=== PATIENT | male | born 1975 | race Caucasian/White ===

== ENCOUNTER 2023-10-25 19:01 | Outpatient (REF) | payer BC, SELFPAY ==
[2023-10-25 21:45] LABS: Bilirubin Negative (Negative); Blood Trace-lysed (Negative); Clarity Clear (Clear); Glucose Negative (Negative); Ketones Trace mg/dL (Negative); Leukocyte Esterase Negative (Negative); Nitrite Negative (Negative); Urobilinogen 0.2 mg/dL (Up to 0.2); pH 5.5 (5-8)
[2023-10-25 21:54] LABS: Bacteria Rare HPF (Negative); C & S Indicated? No; Casts Negative LPF (Negative); Crystals Negative HPF (Negative); Epithelial Cells Rare HPF (Negative); Mucus Trace (Negative); RBC 0-2 HPF (0-2); WBC 0-2 HPF (0-5)
== END 2023-10-25 19:02 | disposition home or self-care (01) ==
LOC: LBN 19:01
PROVIDERS: PCP Neuromusculoskeletal Medicine & OMM; Visit Provider Physician Assistant
DX: R39.15 Urgency of urination (principal); R39.89 Other symptoms and signs involving the genitourinary system
CPT/HCPCS: 81003; 81015

== ENCOUNTER 2024-09-13 13:27 | Outpatient (REF) | payer BC, SELFPAY ==
--- OUTSIDE RECORDS SUMMARY | 2024-09-13 13:29 | XMS_ITS | Continuity of Care Document ---
Author Organization [facility] Address [address] [place] [address] Care Team Providers Care Supervisor Inspection Room Name Role Phone Alfredo Emanuel Primary Care Physician Encounter [facility] [id number] Date(s): 11/02/22 - 11/02/22 [facility] [address] [place] [address] Encounter Diagnosis Pain of wrist after trauma(Discharge Diagnosis) - 11/02/22 Discharge Disposition: Home or Self Care Attending Physician: Alfredo Emanuel DO Admitting Physician: Alfredo Emanuel DO Referring Physician: Alfredo Emanuel DO Allergies, Adverse Reactions, Alerts No Known Medication Allergies Substance Reaction Severity Status BEE VENOM PROTEIN (HONEY BEE) Anaphylactic reaction Un known Active Assessment and Plan Future Appointments Diagnostic Tests Pending * PSA, Total & Free, S LUCERO 11/02/22 Immunizations Given and Recorded Vaccine Date Status Refusal Reason tetanus-diphth toxoids (Td) adult/adol 08/05/18 Re corded tetanus/diphth/pertuss (Tdap) adult/adol 03/13/08 Recorded Not Given Vaccine Date Status Refusal Reason influenza, unspecified formulation 1 02/14/22 Not Given Patient Refuses 1Result Comment: Patient declined - 06/19/2021 Medications EPINEPHrine 0.3 mg injectable kit See Instructions, PRN other (see comment), Take 1 auto as needed by injection route. Start Date: 02/14/22 Status: Ordered traZODone 50 mg oral tablet 50 mg = 1 tab, Oral, TID, # 90 tab, 0 Refill(s), Pharmacy: [id number] Start Date: 11/02/22 Status: Ordered Problem List Condition Confirmation Course Effective Dates Status Health St atus Informant Blood chemistry abnormal Confirmed Active Elevated liver enzymes level Confirmed 07/14/21 Active Insomnia Confirmed Active Melanocytic nevus Confirmed Active Obstructive sleep apnea syndrome Confirmed Active Pain of left hip joint Confirmed Active Annual physical exam Confirmed Active Periodic leg movements of sleep Confirmed 05/27/18 Active Primary impotence Confirmed Active Rheumatic disease of mitral valve Confirmed Active Shoulder joint pain Confirmed Active Procedures Procedure Date Related Diagnosis Body Site Status Vasectomy 1 07/01/13 Completed Repair of umbilical hernia 2 77 Completed 1in [place] 2double umbilical hernia at Results Laboratory List Name Date Comprehensive Metabolic Panel (CMP) Folate Level 11/02/22 Testosterone, Total and Free [facility] 11/02/22 Vitamin B12 Level (B 12) 11/02/22 Most recent to oldest [Reference Range]: 1 BUN [7-18 mg/dL] 16 mg/dL (11/02/22 8:57 AM) Glucose Level [74-106 mg/dL] 84 mg/dL (11/02/22 8:57 AM) Potassium Level [3.5-5.1 mmol/L] 4.1 mmo l/L (11/02/22 8:57 AM) AST [15-37 unit/L] 25 unit/L (11/02/22 8:57 AM) ALT [16-63 unit/L] 44 unit/L (11/02/22 8:57 AM) Sodium Level [136-145 mmol/L] 140 mmol/L (11/02/22 8:57 AM) Folate Level [8.6-58.9 ng/mL] 16.6 ng/mL (11/02/22 8:57 AM) Calcium Level [8.5-10.1 mg/dL] 8.7 mg/dL (11/02/22 8:57 AM) Albumin Level [3.4-5.0 g/dL] 3.6 g/dL (11/02/22 8:57 AM) Protein Total [6.4-8.2 g/dL] 6.9 g/dL (11/02/22 8:57 AM) Bilirubin Total [0.2-1.0 mg/dL] 0.6 mg/d L (11/02/22 8:57 AM) B12 Level [193-986 pg/mL] 756 pg/mL (11/02/22 8:57 AM) Alk Phos [46-146 unit/L] 97 unit/L (11/02/22 8:57 AM) CO2 [21-32 mmol/L] 28 mmol/L (11/02/22 8:57 AM) eGFR Non-AA [>=60] 95 (11/02/22 8:57 AM) eGFR AA [>=60] 95 (11/02/22 8:57 AM) Chloride Level [98-107 mmol/L] 103 mmol/ L (11/02/22 8:57 AM) Creatinine Level [0.70-1.30 mg/dL] 1.00 mg/dL (11/02/22 8:57 AM) Testosterone [facility] [229-902 ng/dL] 333 ng/ dL 1 *NA* (11/02/22 8:57 AM) Sex Hormone Bnd Glob [facility] [11.5-54.5 nmol /L] 20.8 nmol/L 2 *NA* (11/02/22 8:57 AM) Free Testosterone [facility] [4.1-15.2 ng/dL] 8 .4 ng/dL 3 *NA* (11/02/22 8:57 AM) 1Result Comment: The results of this assay can be falsley elevated due to the consumption of Biotin. 2Result Comment: The results of this assay can be falsely lowered due to the consumption of Biotin. 3Result Comment: This test is not recommended in patients with plasma protein abnormalities. Test performed [place] [address] Social History Social History Type Response Tobacco Never tobacco user T obacco Use:. Sex Male Patient Care team information Care Team Personnel Name: Alfredo Emanuel DO Position: Physician Member Role: Primary Care Physician Address: Address: [place] [address]- Care Team Related Persons Name: MAT MESSINA
--- OUTSIDE RECORDS SUMMARY | 2024-09-13 13:29 | XMS_ITS | Continuity of Care Document ---
Author Organization [facility] Address [address] [place] [address] Care Team Providers Care Program Writer Name Role Phone Alfredo Emanuel Primary Care Physician [phone] Encounter COUNTS INCLUDE 234 BEDS AT [facility] [id number] Date(s): 12/01/22 - 01/20/23 [facility] [address] [place] [address] Discharge Disposition: Home or Self Care Attending Physician: Eduar Landry PA-C Admitting Physician: Eduar Landry PA-C Allergies, Adverse Reactions, Alerts No Known Medication Allergies Substance Reaction Severity Status BEE VENOM PROTEIN (HONEY BEE) Anaphylactic reaction Un known Active Assessment and Plan Future Appointments Future Scheduled Tests Radiology* MRI Wrist w/ Contrast Left 11/27/22 * XR Arthrogram Wrist SI Left 11/27/22 Immunizations Given and Recorded Vaccine Date Status Refusal Reason tetanus-diphth toxoids (Td) adult/adol 08/05/18 Re corded tetanus/diphth/pertuss (Tdap) adult/adol 03/13/08 Recorded Not Given Vaccine Date Status Refusal Reason influenza, unspecified formulation 1 02/14/22 Not Given Patient Refuses 1Result Comment: Patient declined - 06/19/2021 Medications EPINEPHrine 0.3 mg injectable kit 0.3 mg =, IM, Once, PRN other (see comment), # 1 kits, 0 Refill(s), Pharmacy: [facility] #[id number] Start Date: 11/16/22 Status: Ordered traZODone 50 mg oral tablet 50 mg = 1 tab, Oral, TID, # 90 tab, 0 Refill(s), Pharmacy: [id number] Start Date: 11/02/22 Status: Ordered Problem List Condition Confirmation Course Effective Dates Status H ealth Status Informant Blood chemistry abnormal Confirmed Active Elevated liver enzymes level Confirmed 07/14/21 Active Insomnia Confirmed Active Melanocytic nevus Confirmed Active Obstructive sleep apnea syndrome 1 Confirmed Active Pain of left hip joint Confirmed Active Annual physical exam Confirmed Active Periodic leg movements of sleep Confirmed 05/27/18 Active Primary impotence Confirmed Active Rheumatic disease of mitral valve Confirmed Active Shoulder joint pain Confirmed Active 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 Sex Male Patient Care team information Care Team Personnel Name: Alfredo Emanuel DO Position: Physician Member Role: Primary Care Physician Address: Address: [place] [address]- Care Team Related Persons Name: MAT MESSINA Address: [facility]
--- OUTSIDE RECORDS SUMMARY | 2024-09-13 13:29 | XMS_ITS | Continuity of Care Document ---
Author Organization [facility] Address [address] [place] [address] Care Team Providers Care Punchboard Inserter Name Role Phone Jenae [facility] Primary [facility] Date[facility]/23 - 10/19/23 [facility] [address] [place] [address] Discharge Disposition: Home or Self Care Attending Physician: Hernando Bertrand MD Admitting Physician: Hernando Bertrand MD Referring Physician: Hernando Bertrand MD Allergies, Adverse Reactions, Alerts No Known Medication [...] comment), # 1 kits, 0 Refill(s), Pharmacy: [id number] Start Date: 05/10/23 Status: Ordered sertraline 25 mg oral tablet 12.5 mg = 0.5 tab, Oral, Daily, # 45 tab, 0 Refill(s), Pharmacy: [facility] Start Date: 05/13/23 Status: Ordered traZODone 50 mg oral tablet 50 mg = 1 tab, Oral, TID, # 90 tab, 0 Refill(s), Pharmacy: [id number], 173, cm, 11/23/22 9:18:00 EDT, Height Start Date: 10/14/23 Status: Ordered Problem List Condition Confirmation Course Effective Dates Status H ealth Status Informant Erectile dysfunction Confirmed Active Insomnia Confirmed Active Melanocytic nevus Confirmed Active Obstructive sleep apnea syndrome 1 Confirmed Active Pain of left hip joint Confirmed Active Annual physical exam Confirmed Active Periodic leg movements of sleep Confirmed 05/27/18 Active Premature ejaculation Confirmed Active Low libido Confirmed Active Rheumatic disease of mitral valve Confirmed Active Shoulder joint pain Confirmed Active 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 Confirmed Active 1CPAP 6-16 cm TMS Procedures Procedure Date Related Diagnosis Body Site Status Vasectomy 1 07/01/13 Completed Repair of umbilical hernia 2 77 Completed 1in [place] 2double umbilical hernia at Results Laboratory List Name Date FSH [facility] 10/19/23 Hematocrit 10/19/23 Hemoglobin 10/19/23 LH [facility] 10/19/23 Prolactin [facility] 10/19/23 Testosterone, Total and Free [facility] 10/19/23 Thyroid Stimulating Hormone 10/19/23 Most recent to oldest [Reference Range]: 1 Hct [41.0-51.0 %] 46.2 % (10/19/23 7:27 AM) Hgb [14.0-18.0 g/dL] 15.6 g/dL (10/19/23 7:27 AM) TSH [0.358-3.740 mcIntlUnit/mL] 1.396 mc IntlUnit/mL (10/19/23 7:27 AM) FSH [facility] [1.4-18.1 mIntlUnit/mL] 5.5 mInt lUnit/mL 1 *NA* (10/19/23 7:27 AM) Luteinizing Hormone [facility] [1.5-9.3 mIntlUn it/mL] 2.6 mIntlUnit/mL 2 *NA* (10/19/23 7:27 AM) Prolactin [facility] [2.1-17.7 ng/mL] 5.0 ng/mL 3 *NA* (10/19/23 7:27 AM) Testosterone [facility] [229-902 ng/dL] 416 ng/ dL 4 *NA* (10/19/23 7:27 AM) Sex Hormone Bnd Glob [facility] [11.5-54.5 nmol /L] 18.6 nmol/L 5 *NA* (10/19/23 7:27 AM) Free Testosterone [facility] [4.0-14.5 ng/dL] 1 1.3 ng/dL 6 *NA* (10/19/23 7:27 AM) 1Result Comment: Test [place] [address] 2Result Comment: Test [place] [address] 3Result Comment: Test [place] [address] 4Result Comment: The results of this assay can be falsley elevated due to the consumption of Biotin. 5Result Comment: The results of this assay can be falsely lowered due to the consumption of Biotin. 6Result Comment: This test is not recommended in patients with plasma protein abnormalities. Test [place] [address] Social History Social History Type Response Tobacco Never tobacco user T obacco Use:. Sex Male Patient Care team information Care Team Personnel Name: Jenae [facility]ALTH[facility] DO Position: PowerChart View Only Member Role: Informed Provider Address: Address: [place] [address]- Care Team Related Persons Name: MAT MESSINA
--- OUTSIDE RECORDS SUMMARY | 2024-09-13 13:29 | XMS_ITS | Continuity of Care Document ---
Author Organization [facility] Address [address] [place] [address] Care Team Providers Care Inside Sales Director Name Role Phone Alfredo Emanuel Primary Care Physician [facility] [id number] Date(s): 11/16/22 - 11/16/22 [facility] [address] [place] [address] Encounter Diagnosis Fatigue(Discharge Diagnosis) - 11/16/22 Obstructive sleep apnea syndrome(Discharge Diagnosis) - 11/16/22 Discharge Disposition: Home or Self Care Attending Physician: Eduar Landry PA-C Admitting Physician: Eduar Landry PA-C Allergies, Adverse Reactions, Alerts No Known Medication Allergies Substance Reaction Severity Status BEE VENOM PROTEIN (HONEY BEE) Anaphylactic reaction Un known Active Assessment and Plan Future Appointments Future Scheduled Tests Radiology* MRA Upper Extremity w/ + w/o Cnt Left 11/16/22 Immunizations Given and Recorded Vaccine Date Status [...] comment), # 1 kits, 0 Refill(s), Pharmacy: [facility] #[id number] Start Date: 11/16/22 Status: Ordered traZODone 50 mg oral tablet 50 mg = 1 tab, Oral, TID, # 90 tab, 0 Refill(s), Pharmacy: [facility] Start Date: 11/02/22 Status: Ordered [...] complex (TFCC) of left wrist Confirmed Active Procedures Procedure Date Related Diagnosis Body Site Status Vasectomy 1 07/01/13 Completed Repair of umbilical hernia 2 77 Completed 1in [place] 2double umbilical hernia at Results Laboratory List Name Date Automated Diff 11/16/22 CBC w/ Diff 11/16/22 TSH w/ Rflx to Free T4 11/16/22 Most recent to oldest [Reference Range]: 1 WBC [5.0-10.0 x10^3/mcL] 5.4 x10^3/mcL (11/16/22 10:32 AM) RBC [4.6-6.0 x10^6/mcL] 5.1 x10^6/mcL (11/16/22 10:32 AM) Neutro Auto [40.0-75.0 %] 74.0 % (11/16/22 10:32 AM) Lymph Auto [20.0-50.0 %] 18.0 % *LOW* (11/16/22 10:32 AM) Carbon Auto [2.0-15.0 %] 5.7 % (11/16/22 10:32 AM) Basophil Auto [0.0-1.0 %] 0.4 % (11/16/22 10:32 AM) MCV [80.0-96.0] 86.7 (11/16/22 10:32 AM) MCHC [31.0-35.0 g/dL] 34.2 g/dL (11/16/22 10:32 AM) Hct [41.0-51.0 %] 44.5 % (11/16/22 10:32 AM) MCH [26.0-32.0 pg] 29.6 pg (11/16/22 10:32 AM) Neutro Absolute 4.0 x10^3/mcL *NA* (11/16/22 10:32 AM) Hgb [14.0-18.0 g/dL] 15.2 g/dL (11/16/22 10:32 AM) Platelets [130-450 x10^3/mcL] 207 x10^3/ mcL (11/16/22 10:32 AM) TSH [0.358-3.740 mcIntlUnit/mL] 0.854 mc IntlUnit/mL (11/16/22 10:32 AM) RDW-CV [11.5-17.0 %] 12.1 % (11/16/22 10:32 AM) Imm Gran Auto [0.0-0.9 %] 0.6 % (11/16/22 10:32 AM) Eos, Auto [1.0-6.0 %] 1.3 % (11/16/22 10:32 AM) Social History Social History Type Response Tobacco Never tobacco user T obacco Use:. Sex Male Patient Care team information Care Team Personnel Name: Alfredo Emanuel DO Position: Physician Member Role: Primary Care Physician Address: Address: [place] [facility] [address] [address]- Care Team Related Persons Name: MAT MESSINA
--- OUTSIDE RECORDS SUMMARY | 2024-09-13 13:30 | XMS_ITS | Continuity of Care Document ---
Author Organization [facility] Address [address] [place] [address] Care Team Providers Care Community Services Coordinator Name Role Phone Alfredo Torres Primary Care Physician Encounter [facility] [id number] Date(s): 01/17/24 - 01/17/24 [facility] [address] [place] [address] Encounter Diagnosis Obstructive sleep apnea syndrome(Discharge Diagnosis) - 01/12/24 Obstructive sleep apnea (adult) (pediatric)(Final) - Discharge Disposition: Home or Self Care Attending Physician: Lesly Carbajal NP Referring Physician: Alfredo Torres DO Allergies, Adverse Reactions, Alerts No Known Medication Allergies Substance Reaction Severity Status BEE VENOM PROTEIN (HONEY BEE) Anaphylactic reaction Un known Active Assessment and Plan Extracted from: Title:Clinic - Office Visit Note Author:Low Carbajal NP Date:01/17/24 1.??Obstructive sleep apnea syndrome??G47.33 ??ZELALEM with an AHI of 6.2/hr diagnosed in 2012. He never started treatment??initially. I ordered CPAP 6-16 cm when I last saw him in 2018. He tried??it for a very brief period of time (a few days) and returned it. Then he tried CPAP again about a year ago and again only tried it a few times and could not stand having anything on his face. He continues to have snoring, fatigue and nocturia.?? At this time he is interested in trying an oral appliance. I discussed this treatment with him to??include potential for tooth pain/sensitivity,??jaw pain/stiffness and bite change. He has all his teeth and they are in good condition. He does not have any locking or popping of jaw. I will see him back in six months. I??did let??him know??that??since??his PSG is so??old??it is possible??his??insurance??will require an??updated??PSG.??He is asked to call our office for any sleep related questions or concerns. He does still have his CPAP so if the appliance does not work out he could always try that again. I provided greater than 30 minutes in the care of this patient, more than half the time was spent in [id number] counseling. ? Actions: COMPLETED - [id number] Office/Outpatient Visit - Established Patient, Level 4 (30-39 min)., 01/17/24 12:40:00 EDT, Obstructive sleep apnea syndrome FUTURE - Follow-Up Appointment Request SHABANAY, *Est. 07/18/24 +/- 28 days, Future Order, In [facility] COMPLETED - Referral Management, Medical Service: Other, Reason: Please evlauate and fit for an oral appliance. He failed CPAP Dr Shay, Start: 01/17/24 ?? Future Appointments Immunizations Given and Recorded Vaccine Date Status [...] comment), # 1 kits, 0 Refill(s), Pharmacy: [id number], 173, cm, 11/23/22 9:18:00 EDT, Height, 75.8, kg, 12/20/23 14:26:00 EDT, Weight Dosing Start Date: 12/20/23 Status: Ordered Medrol Dosepak 4 mg oral tablet 1 packets, Oral, Daily, as directed on package labeling, # 21 tab, 0 Refill(s), Pharmacy: [facility], 173, cm, 11/23/22 9:18:00 EDT, Height, 75.8, kg, 12/20/23 14:26:00 EDT, Weight Dosing Start Date: 12/20/23 Stop Date: 12/26/23 Status: Ordered sertraline 25 mg oral tablet 12.5 mg = 0.5 tab, Oral, Daily, # 45 tab, 0 Refill(s), Pharmacy: [facility] Start Date: 05/13/23 Status: Ordered traZODone 50 mg oral tablet 75 mg = 1.5 tab, Oral, every night at bedtime, # 45 tab, 11 Refill(s), other reason (Rx) Start Date: 10/21/23 Stop Date: 10/15/24 Status: Ordered Problem List Condition Confirmation Course Effective Dates Status H ealth Status Informant Erectile dysfunction Confirmed Active Pain of right heel Confirmed Active Insomnia Confirmed Active Melanocytic nevus [...] Completed 1in Aleyda 2double umbilical hernia at Vital Signs Most recent to oldest [Reference Range]: 1 Peripheral Pulse Rate [60-100 bpm] 70 bp m (01/17/24 12:47 PM) Blood Pressure [90-140/60-90 mmHg] 126/7 8mmHg (01/17/24 12:47 PM) Mean Arterial Pressure, Cuff [65-140 mmH g] 94 mmHg (01/17/24 12:47 PM) Weight 72.57 kg (01/17/24 12:47 PM) Weight Measured (lbs) 159.989 lb (01/17/24 12:47 PM) Weight Dosing 72.570 kg (01/17/24 12:47 PM) Height 173 cm (01/17/24 12:47 PM) Height/Length Measured (inches) 68.11 in ch (01/17/24 12:47 PM) BSA Measured 1.87 m2 (01/17/24 12:47 PM) Body Mass Index 24.25 kg/m2 (01/17/24 12:47 PM) Social History Social History Type Response Tobacco Never tobacco user T obacco Use:. Sex Male Physician Outpatient Note * Lesly Carbajal DRY CLEANING MACHINE OPERATOR HELPER: PERFORM Event Display: Office Clinic Note Physician Authored Date: [id number] JAIRO DAVENPORT :1975 Age:48 years Sex:Male Visit Date:01/17/2024 Primary Care Physician: [facility] History of Present Illness Jairo Davenport has a visit for ZELALEM follow-up.? Jairo was last seen by me on 11/03/2022??He has a history of insomnia, impotence, rheumatic dz of mitral valve and ZELALEM. ?? PSG 11/19/12 (BMI 25.1), AHI 6.2/hr, 02 siva 92%, PLMi 23.6/hr, PLMai 3.1/hr. ?? He attempted??CPAP 6-16 cm very briefly in 2018 and had poor tolerance. ?? Last visit he noted symptoms of??snoring, sleep fragmentation, daytime sleepiness (ESS 9), low libido, ED, and neurocognitive decline. We discussed treatment options and he elected??to try CPAP again??so I ordered this and he was lost to follow-up. ?? Jairo says that he did try CPAP again very briefly and he had very poor tolerance to it and just could not stand anything on his face or being attached to something. He returns today because he continues to have symptoms and he wants to try a different treatment.?? He gets to bed around 9 pm, he tends to sleep on the couch for about 30-60 minutes before getting to bed, he tends to get to sleep easily most nights. He wakes up 2/night to urinate and generally gets back to sleep ok but??at times it takes a long time if he has something on his mind. He gets up at4 am to start his day. He is not napping. He is snoring, he has rare gasping, he is not having night sweats, morning headaches or nocturnal reflux.? ESS today 04/25 Physical Exam Vitals & Measurements HR:??70??(Peripheral)?? BP:??126/78?? SpO2:??99%?? HT:??173??cm?? WT:??72.57??kg?? BMI:??24.25?? BSA:??1.87?? GENERAL: answers questions appropriately, well groomed, normal weight HEAD: normocephalic and atraumatic. EYES: non icteric LUNGS: CTA all manriquez. Good air movement throughout. CARDIO: RRR without murmur, gallop or thrill. NEURO: alert and oriented, normal gait. PYSCH: normal mood and affect. CUTANEOUS: no overt lesions or rashes.?? Clinic Assessment/Plan 1.??Obstructive sleep apnea syndrome??G47.33 ??ZELALEM with an AHI of 6.2/hr diagnosed in 2012. He never started treatment??initially. I ordered CPAP 6-16 cm when I last saw him in 2018. He tried??it for a very brief period of time (a few days) andreturned it. Then he tried CPAP again about a year ago and again only tried it a few times and could not stand having anything on his face. He continues to have snoring, fatigue and nocturia.?? At this time he is interested in trying an oral appliance. I discussed this treatment with him to??include potential for tooth pain/sensitivity,??jaw pain/stiffness and bite change. He has all his teeth and they are in good condition. He does not have any locking or popping of jaw. I will see him back in six months. I??did let??him know??that??since??his PSG is so??old??it is possible??his??insurance??will require an??updated??PSG.??He is asked to call our office for any sleep related questionsor concerns. He does still have his CPAP so if the appliance does not work out he could always try that again. I provided greater than 30 minutes in the care of this patient, more than half the time was spent in [id number] counseling. Actions: COMPLETED - [id number] Office/Outpatient Visit - Established Patient, Level 4 (30-39 min)., 01/17/24 12:40:00 EDT, Obstructive sleep apnea syndrome FUTURE - Follow-Up Appointment Request TATA, *Est. 07/18/24 +/- 28 days, Future Order, In [facility] COMPLETED - Referral Management, Medical Service: Other, Reason: Please evlauate and fit for an oral appliance. He failed CPAP Dr Shay, Start: 01/17/24 ?? 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 Unchanged methylPREDNISolone (Medrol Dosepak 4 mg oral tablet) 1 packets Oral (given by mouth) Every day Pain of right heel Duration: 6 Days as directed on package labeling Contact prescribing physician if questions or concerns ?? Unchanged sertraline (sertraline 25 mg oral tablet) 0.5 tab Oral (given by mouth) Every day Anxiety Contact prescribing physician if questions or concerns ?? Unchanged traZODone (traZODone 50 mg oral tablet) 1.5 tab Oral (given by mouth) Every night at bedtime Insomnia Duration: 30 Days Contact prescribing physician if questions or concerns ?? Allergies BEE VENOM PROTEIN (HONEY BEE)??(Anaphylactic reaction) No Known Medication Allergies Social History Alcohol Never Electronic Cigarette/Vaping Electronic Cigarette Use: Never. Tobacco Never tobacco user Tobacco Use:. Family History COPD - Chronic obstructive pulmonary disease: Mother. Melanoma in situ: Father. Obstructive sleep apnea: Father. Immunizations Vaccine Date Status influenza, unspecified formulation - Not Given Comments : Patient Refuses Patient declined - 06/19/2021 tetanus-diphth toxoids (Td) adult/adol 08/05/2018 Recorded tetanus/diphth/pertuss (Tdap) adult/adol 03/13/2008 Recorded Electronically Signed on 01/17/2024 13:12 EDT Lesly Carbajal NP Patient Care team information Care Team Personnel Name: Alfredo Torres DO Position: PowerChart View Only Member Role: Informed Provider Address: Address: [place] [facility] [place] [address]- Care Team Related Persons Name: MAT DAVENPORT
--- OUTSIDE RECORDS SUMMARY | 2024-09-13 13:30 | XMS_ITS | Encounter Summary ---
Author Organization [facility] [place] [address] Care Team Providers Care Temperature Logging Operator Name Role Phone Eduar Landry Primary Care Provider Encounter Details Date Type Department Care Team (Latest Contact Info) Description 10/18/2023 Travel Social History Tobacco Use Types Packs/Day Years Used Date Smoking Tobacco: Former Cigarettes 0.5 3 018 2020 Smokeless Tobacco: Never Sex and Gender Information Value Date Recorded Sex Assigned at Not on file Gender Identity Not on file Sexual Orientation Not on file documented as of this encounter Plan of Treatment Not on file documented as of this encounter Visit Diagnoses Not on filedocumented in this encounter Care Teams Temperature Logging Operator Relationship Specialty Start Date End Date Eduar Landry PA [address] [facility] [address] PCP - General Family Medicine 05/19/23 documented as of this encounter
--- OUTSIDE RECORDS SUMMARY | 2024-09-13 13:30 | XMS_ITS | Continuity of Care Document ---
Author Organization [facility] Address [address] [place] [address] Care Team Providers Care Devulcanizer Operator Name Role Phone Jenae [facility] Primary Care Physician En[facility] Date(s): 10/27/23 - 10/27/23 [facility] [address] [place] [address] Discharge Disposition: Home or Self Care Attending Physician: Pamela Mensah PA-C Admitting Physician: Pamela Mensah PA-C Referring Physician: Pamela Mensah PA-C Allergies, Adverse Reactions, Alerts No Known [...] comment), # 1 kits, 0 Refill(s), Pharmacy: [facility] Start Date: 05/10/23 Status: Ordered sertraline 25 mg oral tablet 12.5 mg = 0.5 tab, Oral, Daily, # 45 tab, 0 Refill(s), Pharmacy: [facility] Start Date: 05/13/23 Status: Ordered traZODone [...] Laboratory List Name Date Comprehensive Metabolic Panel 10/27/23 PSA Screen 10/27/23 Most recent to oldest [Reference Range]: 1 BUN [7-18 mg/dL] 21 mg/dL *HI* (10/27/23 4:33 PM) Glucose Level [74-106 mg/dL] 90 mg/dL (10/27/23 4:33 PM) Potassium Level [3.5-5.1 mmol/L] 3.7 mmo l/L (10/27/23 4:33 PM) AST [15-37 unit/L] 23 unit/L (10/27/23 4:33 PM) ALT [16-63 unit/L] 40 unit/L (10/27/23 4:33 PM) Sodium Level [136-145 mmol/L] 138 mmol/L (10/27/23 4:33 PM) Calcium Level [8.5-10.1 mg/dL] 8.9 mg/dL (10/27/23 4:33 PM) Albumin Level [3.4-5.0 g/dL] 3.6 g/dL (10/27/23 4:33 PM) Protein Total [6.4-8.2 g/dL] 6.7 g/dL (10/27/23 4:33 PM) Bilirubin Total [0.2-1.0 mg/dL] 0.4 mg/d L (10/27/23 4:33 PM) Alk Phos [46-146 unit/L] 81 unit/L (10/27/23 4:33 PM) CO2 [21-32 mmol/L] 27 mmol/L (10/27/23 4:33 PM) eGFR Non-AA [>=60] 88 (10/27/23 4:33 PM) eGFR AA [>=60] 88 (10/27/23 4:33 PM) Chloride Level [98-107 mmol/L] 103 mmol/ L (10/27/23 4:33 PM) Creatinine Level [0.70-1.30 mg/dL] 1.06 mg/dL (10/27/23 4:33 PM) PSA Total Screening [0.00-4.00 ng/mL] 0. 46 ng/mL 1 (10/27/23 4:33 PM) 1Interpretive Data: The testing method is an heterogeneous enzyme Immunoassay manufactured by [employer] and performed on the MiniMonos system. Values obtained with different assay methods or kits may be different and cannot be used interchangeably. Test results cannot be interpreted as absolute evidence for the presence or absence of malignant disease. Social History Social History Type Response Tobacco Never tobacco user T obacco Use:. Sex Male Patient Care team information Care Team Personnel Name: Alfredo Torres DO Position: PowerChart View Only Member Role: Informed Provider Address: Address: [place] [address]- Care Team Related Persons Name: MAT MESSINA
--- OUTSIDE RECORDS SUMMARY | 2024-09-13 13:30 | XMS_ITS | Continuity of Care Document ---
Author Organization [facility] Address [address] [place] [address] Care Team Providers Care Industrial Automation Specialist Name Role Phone Alfredo Emanuel Primary Care Physician Encounter [facility] Date(s): 01/28/23 - 03/24/23 [facility] [address] [place] [address] Discharge Disposition: Home or Self Care Attending Physician: Eduar Landry PA-C Admitting Physician: Eduar Landry PA-C Referring Physician: Eduar Landry PA-C Allergies, Adverse Reactions, Alerts No Known Medication Allergies Substance Reaction Severity Status BEE VENOM PROTEIN (HONEY BEE) Anaphylactic reaction Un known Active Assessment and Plan Future Appointments Future Scheduled Tests Laboratory* Ferritin 03/24/23 * Iron Level and TIBC 03/24/23 Radiology* MRI Wrist w/ Contrast Left 11/27/22 [...] comment), # 1 kits, 0 Refill(s), Pharmacy: [facility] Start Date: 11/16/22 Status: Ordered traZODone 50 mg oral tablet 50 mg = 1 tab, Oral, TID, # 90 tab, 0 Refill(s), Pharmacy: [facility] Start Date: 11/02/22 Status: Ordered Problem [...] Member Role: Primary Care Physician Address: Address: [place] [facility] [id number] [place] [address] Care Team Related Persons Name: MAT MESSINA Address: Home
--- OUTSIDE RECORDS SUMMARY | 2024-09-13 13:30 | XMS_ITS | Continuity of Care Document ---
Author Organization [facility] Address [address] [place] [address] Care Team Providers Care Security Door Installer Name Role Phone Jenae [facility] Date[facility] 12/20/23 - 12/20/23 [facility] [address] [place] [address] Encounter Diagnosis Pain of right heel(Discharge Diagnosis) - 12/20/23 Discharge Disposition: Home or Self Care Attending Physician: Qamar Elizabeth MD Admitting Physician: Qamar Elizabeth MD Referring Physician: Qamar Elizabeth MD Allergies, Adverse Reactions, Alerts No Known Medication Allergies Substance Reaction Severity Status BEE VENOM PROTEIN (HONEY BEE) Anaphylactic reaction Un known Active Assessment and Plan Future Appointments Immunizations Given and Recorded Vaccine [...] comment), # 1 kits, 0 Refill(s), Pharmacy: [facility], 173, cm, 11/23/22 9:18:00 EDT, Height, 75.8, kg, 12/20/23 14:26:00 EDT, Weight Dosing Start Date: 12/20/23 Status: Ordered Medrol Dosepak 4 mg oral tablet 1 packets, Oral, Daily, as directed on package labeling, # 21 tab, 0 Refill(s), Pharmacy: [facility], 173, cm, 11/23/22 9:18:00 EDT, Height, 75.8, kg, 12/20/23 14:26:00 EDT, Weight Dosing Start Date: 12/20/23 Stop Date: 12/26/23 Status: Ordered sertraline 25 mg oral tablet 12.5 mg = 0.5 tab, Oral, Daily, # 45 tab, 0 Refill(s), Pharmacy: [facility] Start Date: 05/13/23 Status: Ordered traZODone [...] team information Care Team Personnel Name: Jenae [facility] DO Position: PowerChart View Only Member Role: Informed Provider Address: Address: [place] [facility] [address] Care Team Related Persons Name: MAT MESSINA
--- OUTSIDE RECORDS SUMMARY | 2024-09-13 13:30 | XMS_ITS | Clinical Summary ---
Author Organization [facility] Address [facility] [place] [address] Care Team Providers Care Building Surveyor Name Role Phone Eduar Landry Primary Care Provider [phone] Allergies Active Allergy Reactions Criticality Noted Date Comments Bee Venom Protein (Honey Bee) Anaphylaxis High 10/18/2023 White faced hornets Medications Medication Sig Dispensed Refills Start Date End Date Status traZODone (Desyrel) 50 mg tablet Take 50 mg by mouth 3 times daily. 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 10/18/2023 Social History Tobacco Use Types Packs/Day Years Used Date Smoking Tobacco: Former Cigarettes 0.5 3 2 018 - 2020 Smokeless Tobacco: Never Tobacco Cessation:Counseling Given: Not Answered Sex and Gender Information Value Date Recorded Sex Assigned at Not on file Gender Identity Not on file Sexual Orientation Not on file Last Filed Vital Signs Vital Sign Reading Time Taken Comments Blood Pressure 138/89 10/18/2023 9:51 AM EDT Pulse 65 10/18/2023 9:51 AM EDT Temperature 36.6 ??C (97.9 ??F) 10/18/2023 9:51 AM ED T Respiratory Rate - - Oxygen Saturation 98% 10/18/2023 9:51 AM EDT Inhaled Oxygen Concentration - - Weight 76.3 kg (168 lb 3.2 oz) 10/18/2023 9:51 A M EDT Height 170.6 cm (5' 7.15) 10/18/2023 9:51 AM ED T Body Mass Index 26.23 10/18/2023 9:51 AM EDT Plan of Treatment Health Maintenance Due Date Last Done Comments CT Colonography 1977 Colonoscopy 1975 Colorectal Cancer Screening 1975 FIT DNA 1977 FIT 1975 Sigmoidoscopy (10 year) with FIT yearly 1977 Sigmoidoscopy 1977 HIV screen 11/24/1995 Hepatitis C Screening 11/24/1995 Lipid Screening 11/24/1995 Hepatitis B vaccine (0-59 yrs) (1) 1996 Pneumococcal Vaccine: At-Risk 5-49yrs (1 of 2 - PCV) 0 1996 Tetanus/Diphtheria/Pertussis Vaccines (1 - Tdap) 11/23 Diabetes Screening (HgbA1C or Glucose) 2017 Covid-19 Vaccine (1 - 2023- season) 2024 Influenza (Flu) vaccine (1 o f 1 - Influenza standard series) 04/02/2024 Care Teams Building Surveyor Relationship Specialty Start Date End Date Eduar Landry PA [address] [place] [address] PCP - General Family Medicine 05/19/23
--- OUTSIDE RECORDS SUMMARY | 2024-09-13 13:30 | XMS_ITS | Continuity of Care Document ---
Author Organization [facility] Address [address] [place] [address] Care Team Providers Care Health/Safety Job Titles Name Role Phone Binu Morse Primary Care Physician Encounter [facility] [id number] Date(s): 06/26/24 - 07/26/24 [facility] [address] [place] [address] Encounter Diagnosis Obstructive sleep apnea syndrome(Discharge Diagnosis) - 06/16/24 Discharge Disposition: Home or Self Care Attending Physician: Lesly Carbajal HOOK AND EYE SEWING MACHINE OPERATOR Encounter Type: Preadmit Allergies, Adverse Reactions, Alerts No Known Medication Allergies Substance Criticality Severity Reaction Reaction Severity Status BEE VENOM PROTEIN (HONEY BEE) Unable to assess criticality Unknown Anaphylactic reaction Active Immunizations Given and Recorded Vaccine Date Status [...] comment), # 1 kits, 0 Refill(s), Pharmacy: [facility], 173, cm, 11/23/22 9:18:00 EDT, Height, 75.8, kg, 12/20/23 14:26:00 EDT, Weight Dosing Start Date: 12/20/23 Status: Ordered Quantity: 1.0 Unit: kits Repeat number: 1 Medrol Dosepak 4 mg oral tablet 1 packets, Oral, Daily, as directed on package labeling, # 21 tab, 0 Refill(s), Pharmacy: [facility], 173, cm, 11/23/22 9:18:00 EDT, Height, 75.8, kg, 12/20/23 14:26:00 EDT, Weight Dosing Start Date: 12/20/23 Stop Date: 12/26/23 Status: Ordered Quantity: 21.0 Unit: tab Repeat number: 1 Indication: Pain in right foot sertraline 25 mg oral tablet 12.5 mg = 0.5 tab, Oral, Daily, # 45 tab, 0 Refill(s), Pharmacy: [facility] Start Date: 05/13/23 Status: Ordered Quantity: 45.0 Unit: tab Repeat number: 1 Indication: Anxiety disorder, unspecified traZODone 50 mg oral tablet 75 mg = 1.5 tab, Oral, every night at bedtime, # 45 tab, 11 Refill(s), other reason (Rx) Start Date: 10/21/23 Stop Date: 10/15/24 Status: Ordered Quantity: 45.0 Unit: tab Repeat number: 12 Indication: Insomnia, unspecified Problem List Condition Confirmation Course Effective Dates [...] tobacco user T obacco Use:. Sex Male Sex Representation Male (finding) Patient Care team information Care Team Personnel Name: Jenae [facility] Position: PowerChart View Only Member Role: Informed Provider Address: [address] Telecom: Name: Binu Morse MD Position: Physician Member Role: Primary Care Physician Address: [address] Telecom: Care Team Related Persons Name: MAT MESSINA Insurance Providers Guarantor name: JAIRO MESSINA Health Plan Information #: 3 Payer: [employer] Member Number: [id number] Policy Number: NA Group Number: NA Health Plan Information #: 1 Payer: [facility] Member Number: [id number] Policy Number: NA Group Number: NA Health Plan Information #: 2 Payer: [employer] Member Number: [id number] Policy Number: NA Group Number: [id number]
--- OUTSIDE RECORDS SUMMARY | 2024-09-13 13:30 | XMS_ITS | Continuity of Care Document ---
Author Organization [facility] Address [address] [place] [address] Encounter [facility] [id number] Date(s): 01/11/24 - 01/11/24 [facility] [address] [place] [address]
--- OUTSIDE RECORDS SUMMARY | 2024-09-13 13:30 | XMS_ITS | Clinical Summary ---
Author Organization [facility] Address [address] [place] [address] Care Team Providers Care Crm Marketing Executive Name Role Phone Alfredo Emanuel DO Primary Care Provider Allergies No known active allergies Medications DIAZepam (VALIUM) 5 mg tablet 1-2 tabs 1 hour prior to procedure. 2 Tab 0 05/23/2013 Active HYDROcodone-acet aminophen (LORTAB) 5-500 mg tablet Take 1 Tab by mouth every 6 hours as needed for Pain. 15 Tab 0 07/14/2013 Active Active Problems Problem Noted Date Diagnosed Date Encounter for sterilization 05/23/2013 Overview (05/02/2015): ICD10 Update Auto Replacement Surgical History Surgery Date Site/Laterality Comments HERNIA REPAIR 1975 Medical History Medical History Date Comments ZELALEM (obstructive sleep apnea) GERD (gastroesophageal reflux disease) Family History Medical History Relation Comments Prostate Cancer Neg Hx Social History Tobacco Use Types Packs/Day Years Used Date Smoking Tobacco: Former Cigarettes Q uit: 10/17/2001 Alcohol Use Standard Drinks/Week Comments Yes 0 (1 standard drink = 0.6 oz pur e alcohol) occasional Sex and Gender Information Value Date Recorded Sex Assigned at Not on file Legal Sex Male 17:32 EST Gender Identity Male 09/29/2021 10:12 EST Sexual Orientation Not on file Obstetrics History Plan of Treatment Health Maintenance Due Date Last Done Comments Hepatitis C Screen 1975 Hepatitis B Vaccine (1 of - 19+ 3-dose series) 11/23 COVID-19 Vaccine ( season) 2024 Insurance [facility] Address: [facility] [address] [place] [address] Care Teams Crm Marketing Executive Relationship Specialty Start Date End Date Alfredo Emanuel DO PCP - General 07/14/13
--- OUTSIDE RECORDS SUMMARY | 2024-09-13 13:30 | XMS_ITS | Continuity of Care Document ---
Author Organization [facility] Address [address] [place] [address] Care Team Providers Care Solar Panel Installation Supervisor Name Role Phone Alfredo Emanuel Primary Care Physician Encounter [facility] Date(s): 03/29/23 - 03/29/23 [facility] [address] [place] [address] Discharge Disposition: Home or Self Care Attending [...] comment), # 1 kits, 0 Refill(s), Pharmacy: [email or web address] #[id number] Start Date: 11/16/22 Status: Ordered traZODone 50 mg oral tablet 50 mg = 1 tab, Oral, TID, # 90 tab, 0 Refill(s), Pharmacy: [facility] #[id number] Start Date: 11/02/22 Status: Ordered [...] hernia at Results Laboratory List Name Date Ferritin 03/29/23 Iron Level and TIBC 03/29/23 Most recent to oldest [Reference Range]: 1 Iron Sat [20-55 %] 44 % (03/29/23 7:20 AM) Ferritin Level [26-388 ng/mL] 278 ng/mL (03/29/23 7:20 AM) TIBC [250-450 mcg/dL] 314 mcg/dL (03/29/23 7:20 AM) Iron [65-175 mcg/dL] 137 mcg/dL (03/29/23 7:20 AM) Social History Social History Type Response Tobacco Never tobacco user T obacco Use:. Sex Male Patient Care team information Care Team Personnel Name: Alfredo Emanuel DO Position: Physician Member Role: Primary Care Physician Address: Address: [place] [address]- Care Team Related Persons Name: MAT MESSINA Address: [place]"
--- OUTSIDE RECORDS SUMMARY | 2024-09-13 13:30 | XMS_ITS | Referral Summary ---
Author Organization [facility] Address [address] [place] [address] Care Team Providers Care Automation Application Engineer Name Role Phone Alfredo Emanuel DO Primary [...] 05/23/2013 Overview (05/02/2015): ICD10 Update Auto Replacement Social History Tobacco Use Types Packs/Day Years Used Date Smoking Tobacco: Former Cigarettes Q uit: 10/17/2001 Alcohol Use Standard Drinks/Week Comments Yes 0 (1 standard drink = 0.6 oz pur e alcohol) occasional Sex and Gender Information Value Date Recorded Sex Assigned at Not on file Legal Sex Male 17:32 EST Gender Identity Male 09/29/2021 10:12 EST Sexual Orientation Not on file Plan of Treatment Not on file Insurance [facility] [place] Care Teams Automation Application Engineer Relationship Specialty Start Date End Date Alfredo Emanuel DO PCP - General 07/14/13
--- OUTSIDE RECORDS SUMMARY | 2024-09-13 13:30 | XMS_ITS | Encounter Summary ---
Author Organization [facility] Address [facility] [place] [address] Care Team Providers Care Marketing Strategist Name Role Phone Eduar Landry Primary Care Provider [phone] Reason for Visit * Consultation (Routine) - Closed Specialty Diagnoses / Procedures Referred By Aime t Referred To Contact Endocrinology Diagnoses Decreased libido Eduar Landry PA [address] [place] [address] [facility] [address] [place] [phone] Referral ID Status Reason Start Date Expiration Date V isits Requested Visits Authorized [id number] Closed Consult, Test & Treat PCP Updated and/or Approved 05/13/2023 11/08/2023 6 6 Encounter Details Date Type Department Care Team (Late st Contact Info) Description 10/18/2023 10:00 AM EDT Office Visit [place] [address] Hernadno Bertrand MD [facility] [place] [address] Low libido Social History Tobacco Use Types Packs/Day Years Used Date Smoking Tobacco: Former Cigarettes 0.5 3 2 018 - 2020 Smokeless Tobacco: Never Tobacco Cessation:Counseling Given: Not Answered Sex and Gender Information Value Date Recorded Sex Assigned at Not on file Gender Identity Not on file Sexual Orientation Not on file documented as of this encounter Last Filed Vital Signs Vital Sign Reading [...] Mass Index 26.23 10/18/2023 9:51 AM EDT documented in this encounter Progress Notes * Hernando Bertrand MD - 10/18/2023 10:00 AM EDT Images from the original note were not included. Endocrinology Outpatient Visit Date of Visit: 10/18/2023 Patient Name:Carroll Davenport : 1975 PCP: FELICITAS Enciso Reason for referral: low libido Carroll Davenport is being seen in the clinic today at the request of FELICITAS Vallecillo for the evaluation of hypogonadism. Patient's previous record and lab results reviewed. Brief History of Present Illness: Carroll Davenport is a very pleasant 47 y.o. year old male with a PMH significant for ZELALEM not on CPAP, is referred to us for evaluation of hypogonadism. Since 2016 notice low libido. In the past 6 months it has been improving. He tried sildenafil in the past and works. His weight has been stable. He reports fatigue, low libido, low energy levels, erectile dysfunction. He has occasional morning erection. Has occasional overnight sweats. Denies gynecomastia/galactorrhea, breast tenderness. He denies loss of axillary/chest/pubic hair. He has intermittent insomnia. He is slightly anxious. 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 ROS: Cardiovascular: No chest pain or palpitations Respiratory: No cough, wheezing, shortness of breath GI: Normal appetite. No nausea, vomiting, diarrhea, constipation No past medical history on file. No past surgical history on file. traZODone (Desyrel) 50 mg tablet EPINEPHrine 0.3 mg/0.3 mL Auto-Injector Allergies Allergen Reactions Bee Venom Protein (Honey Bee) Anaphylaxis White faced hornets Social History Socioeconomic History Marital status: Spouse name: None Number of children: None Years of education: None Highest education level: None Occupational History None Tobacco Use Smoking status: Former Packs/day: 0.50 Years: 3.00 Additional pack years: 0.00 Total pack years: 1.50 Types: Cigarettes Quit date: 2020 Years since quittin.2 Smokeless tobacco: Never Vaping Use Vaping Use: Never used Substance and Sexual Activity Alcohol use: None Drug use: None Sexual activity: None Other Topics Concern None Social History Narrative None Social Determinants of Health Financial Resource Strain: Not on file Food Insecurity: Not on file Transportation Needs: Not on file Physical Activity: Not on file Intimate Partner Violence: Not on file Housing Stability: Not on file No family history on file. PE: BP 138/89 (BP Location (NBP): Left arm, Patient Position: Sitting, BP Cuff Sizes: Adult (25-34 cm)) Pulse 65 Temp 36.6 ??C (97.9 ??F) (Temporal) Ht 170.6 cm (5' 7.15) Wt 76.3 kg (168 lb 3.2 oz) SpO2 98% BMI 26.23 kg/m?? Appearance: pleasant male in NAD, clinically euthyroid Skin - normal in texture and temperature, no body hair loss HEENT - PERRLA, EOMI Neck - supple, no goiter Chest - No gynecomastia, normal chest expansion Heart - regular rhythm Abdomen - soft, non-tender Extremities - no pitting edema Labs: Assessment: Carroll Davenport is a 47 y.o. male with a PMH significant for ZELALEM not on CPAP, is referred to us for evaluation of hypogonadism. He is c/o low libido and ED but reports he noticed some improvement in the last few months. His labs from last year showed low normal total testosterone, normal PSA and ferritin. No gynecomastia. Has5 children so primary hypogonadism excluded. Will proceed with further work up but less likely pt has secondary hypogonadism. Plan: - labs to be done ~8 am, fasting (faxed to [facility]) Orders Placed This Encounter Procedures TSH Testosterone, total and free Hemoglobin and Hematocrit, blood Luteinizing Hormone Follicle Stimulating Hormone Prolactin RTC based on the blood work. Time statement: I spent 45 total minutes on this visit today. The time was spent face to face with the patient, on chart review and documentation, ordering labs/studies and coordination of care. Hernando Bertrand MD documented in this encounter Plan of Treatment Scheduled Orders Name Type Priority Associated Diagnoses Orde r Schedule TSH Lab Routine Low libido Expected: 10/18/2023 (Approximate), Expires: 10/17/2024 Testosterone, total and free Lab Routine Low libido Expected: 10/18/2023 (Approximate), Expires: 10/17/2024 Hemoglobin and Hematocrit, blood Lab Routine Low libido Expected: 10/18/2023 (Approximate), Expires: 10/17/2024 Luteinizing Hormone Lab Routine Low libido Expected: 10/18/2023 (Approximate), Expires: 10/17/2024 Follicle Stimulating Hormone Lab Routine Low libido Expected: 10/18/2023 (Approximate), Expires: 10/17/2024 documented as of this encounter Visit Diagnoses Diagnosis Low libido documented in this encounter Care Teams Marketing Strategist Relationship Specialty Start Date End Date Eduar Landry PA [address] [place] [address] PCP - General Family Medicine 05/19/23 documented as of this encounter
--- OUTSIDE RECORDS SUMMARY | 2024-09-13 13:30 | XMS_ITS | Continuity of Care Document ---
Author Organization [facility] Address [address] [place] [address] Care Team Providers Care Material Mover Name Role Phone Eduar Landry Primary Care Physician Encounter [facility] Date(s): 05/10/23 - 05/10/23 [facility] [address] [place] [address] Encounter Diagnosis Low libido(Discharge Diagnosis) - 05/10/23 Discharge Disposition: Home or Self Care Attending [...] comment), # 1 kits, 0 Refill(s), Pharmacy: [facility] #105 Start Date: 05/10/23 Status: Ordered traZODone 50 mg oral tablet 50 mg = 1 tab, Oral, TID, # 90 tab, 0 Refill(s), Pharmacy: [facility] #105 Start Date: 11/02/22 Status: Ordered Problem [...] of umbilical hernia 2 77 Completed 1in Dare 2double umbilical hernia at Results Laboratory List Name Date Testosterone, Total and Free [facility] 05/10/23 Most recent to oldest [Reference Range]: 1 Testosterone [facility] [229-902 ng/dL] 267 ng/ dL 1 *NA* (05/10/23 9:12 AM) Sex Hormone Bnd Glob [facility] [11.5-54.5 nmol /L] 20.5 nmol/L 2 *NA* (05/10/23 9:12 AM) Free Testosterone [facility] [4.0-14.5 ng/dL] 6 .7 ng/dL 3 *NA* (05/10/23 9:12 AM) 1Result Comment: The results of this assay can be falsley elevated due to the consumption of Biotin. 2Result Comment: The results of this assay can be falsely lowered due to the consumption of Biotin. 3Result Comment: This test is not recommended in patients with plasma protein abnormalities. Test performed or referred by The [address] [address] Social History Social History Type Response Tobacco Never tobacco user T obacco Use:. Sex Male Patient Care team information Care Team Personnel Name: Eduar Landry PA-C Position: Physician Member Role: Primary Care Physician Address: Address: [address] [place] [phone] [place] Care Team Related Persons Name: MAT MESSINA
--- OUTSIDE RECORDS SUMMARY | 2024-09-13 13:30 | XMS_ITS | Continuity of Care Document ---
Author Organization [facility] Address [address] [place] [address] Care Team Providers Care Non Licensed Nuclear Equipment Operator Name Role Phone Alfredo Emanuel Primary Care Physician Encounter [facility] Date(s): 11/30/22 - 11/30/22 [facility] [address] [place] [address] Discharge Disposition: Home Allergies, Adverse Reactions, Alerts No Known Medication [...] comment), # 1 kits, 0 Refill(s), Pharmacy: [facility] #105 Start Date: 11/16/22 Status: Ordered traZODone 50 mg oral tablet 50 mg = 1 tab, Oral, TID, # 90 tab, 0 Refill(s), Pharmacy: [facility] #105 Start Date: 11/02/22 Status: Ordered [...] Member Role: Primary Care Physician Address: Address: [place] [facility] [id number] [place] [address] Care Team Related Persons Name: MAT MESSINA Address: [place]
--- OUTSIDE RECORDS SUMMARY | 2024-09-13 13:30 | XMS_ITS | Continuity of Care Document ---
Author Organization [facility] f or Sleep Disorders Address [address] [place] [address] Care Team Providers Care Spray Dyer Name Role Phone Eliud Dewey Primary Care Physician Encounter [facility] Date(s): 11/23/22 - 11/23/22 [facility] [address] [place] [address] Encounter Diagnosis Obstructive sleep apnea syndrome(Discharge Diagnosis) - 11/19/22 Insomnia(Discharge Diagnosis) - 11/23/22 Restless leg syndrome(Discharge Diagnosis) - 11/23/22 Discharge Disposition: Home or Self Care Attending Physician: Lesly Carbajal TRACK CAR OPERATOR Referring Physician: Eduar Landry PA-C Allergies, Adverse Reactions, Alerts No Known Medication Allergies Substance Reaction Severity Status BEE VENOM PROTEIN (HONEY BEE) Anaphylactic reaction Un known Active Assessment and Plan Future Appointments Future Scheduled Tests Radiology* MRA Upper Extremity w/ + w/o Cnt Left 11/16/22 Functional Status 11/23/22 Other exposure to Infectious Disease Non e Immunizations Given and Recorded Vaccine Date Status [...] comment), # 1 kits, 0 Refill(s), Pharmacy: [id number] Start Date: 11/16/22 Status: Ordered traZODone 50 mg oral tablet 50 mg = 1 tab, Oral, TID, # 90 tab, 0 Refill(s), Pharmacy: [id number] Start Date: 11/02/22 Status: Ordered Problem [...] Most recent to oldest [Reference Range]: 1 Weight 72.57 kg (11/23/22 9:18 AM) Weight Measured (lbs) 159.989 lb (11/23/22 9:18 AM) Height 173 cm (11/23/22 9:18 AM) Height/Length Measured (inches) 68.11 in ch (11/23/22 9:18 AM) BSA Measured 1.87 m2 (11/23/22 9:18 AM) Body Mass Index 24.25 kg/m2 (11/23/22 9:18 AM) Social History Social History Type Response Tobacco Never tobacco user T obacco Use:. Sex Male Polysomnography (sleep) study * Efren Tucker M: PERFORM Event Display: Sleep Study Authored Date: [id number] Physician Outpatient Note * Lesly Carbajal TRACK CAR OPERATOR: PERFORM Event Display: Office Clinic Note Physician Authored Date: [id number] JAIRO DAVENPORT Pinky :1975 Age:47 years Sex:Male Visit Date:2022 Primary Care Physician: Eliud Dewey DO History of Present Illness Jairo Davenport has a Zoom visit for ZELALEM follow-up. He has given consent to have a telehealth visit. Patient is at home, provider is in the office. ?? Jairo was last seen by me in 2018. He has a history of insomnia, impotence, rheumatic dz of mitral valve and ZELALEM. He had a PSG 11/19/12 (BMI 25.1), AHI 6.2/hr, 02 siva 92%, PLMi 23.6/hr, PLMai 3.1/hr. ?? At his last visit he reported he had never started on treatment. He noted symptoms of loud snoring,excessive daytime sleepiness (ESS 12), headaches and night sweats. CPAP 6-16 cm ordered and he was lost to follow-up. ?? Jairo tells me that he got a CPAP and tried it and had a hard time with it and gave up on it. He thinks he felt suffocated. He used a full face mask and thinks just having the mask on his face made him feel claustrophobic. He only tried it a few times that he recalls and returned the CPAP.? Jairo??feels??the biggest problem with sleep is??waking up a lot and not sleeping well.?He tried trazodone from his PCP and it helped him sleep and he felt more relaxed/less anxious during the day.He typically goes to bed at??7:30-8:30 pm?it takes??15-20 minutes to fall asleep.??He wakes up??a few??times a night from unknown reason or to urinate (typically once). It takes??varying minutes to get back to sleep.??He gets up at??4 am to start the day.??He does not take naps but he often falls asleep on the couch before bed.??He sleeps with someone. He??has disturbances to sleep to include kids/noise. ?? Quality of sleep most nights is perceived as poor. ?? Level of daytime alertness is low energy to sleepy. ?? NEUROCOGNITIVE??SYMPTOMS: Has not noted poor or worsening memory. Does have short concentration. Does have irritability. Does have anxiety. Does have depression. ?? INSOMNIA SYMPTOMS: Does have an active mind when trying to sleep. Does have stressful or upsetting thoughts that keep them from falling asleep. Does watch the clock often during the night. Does worry about getting a good night of sleep. ?? BREATHING SYMPTOMS: Does snore per his . Does not stop breathing during sleep. Does struggle to breathe/gasp while sleeping. Does feel like they are choking or throat is closing during sleep. Does breathe through mouth in sleep. Does not have nasal congestion during the night. ?? MOVEMENT SYMPTOMS: Does toss and turn at night. Does not have messy sheets after sleep. Does have leg or arm jerks in sleep or prior to sleep. Does not have aching, restless or crawling feelings in legs at night. Does have a hard time keeping legs still when trying to rest or sleep. Does not get muscle cramps in legs at night. Does not have sleep walking or talking. ?? DREAM SYMPTOMS: Does not often have nightmares that interfere with sleep. Does not dream of drowning or suffocating. Does not start to dream shortly after falling asleep. Does not see dreams in the room even when awake. Does not see or hear things that aren't really there when falling asleep or waking up. Does not see things in the road when driving that aren't really there. Has not had someone see them act out dreams while sleeping. Has not accidentally injured self in sleep when dreaming. ?? WEAKNESS SYMPTOMS: Does not feel limp, lose strength or fall asleep when angry, surprised or laughing. Does not have leg, arm or face weakness when upset. Does not have episodes of being unable to move when waking up. ?? DRIVING SYMPTOMS: Has not nearly fallen asleep when driving. Has not had an accident related to drowsy driving or not paying attention. Does not forget the last few minutes or miles driven. Does not drive out of [place] and cross center line or go onto shoulder when driving. Has not had a passenger tell them they look sleepy when driving. ?? ESS today 04/25 Physical Exam Vitals & Measurements HT:??173??cm?? WT:??72.57??kg?? BMI:??24.25?? BSA:??1.87?? N/A Assessment/Plan 1.??Obstructive sleep apnea syndrome??G47.33 ZELALEM with an AHI of 6.2/hr diagnosed in 2012. He never started treatment??initially. I ordered CPAP 6-16 cm when I last saw him in 2018. He recalls trying it for a very brief period of time ( a few days) and returned it. He is not sure what the issues was but it may have been the mask made him feel c laustrophobic. He has snoring, sleep fragmentation, daytime sleepiness (ESS 9), low libido, ED, andneurocognitive decline. I discussed treatment options at length to include CPAP therapy, an oral appliance and Inspire.??At this time he wants to try CPAP again. CPAP 6-16 cm cm is ordered. I discussed different mask options and the importance of finding the mask that will work for him within the first 30 days. I discussed how to adjust humidity for dryness/congestion and that the goal will be to use nightly for total sleep time. I covered insurance compliance requirements and the [facility] mask exchange policy. Marjorie see him back between 31-90 days after starting CPAP and??he is ??encouraged to call me sooner he is having any difficulties tolerating CPAP. Drowsy driving precautions were reviewed. I provided greater than??45 minutes in the care of this patient, more than half the time was spent in [id number] counseling. Ordered: Follow-Up Appointment Request TATA, *Est. 01/23/23 +/- 14 days, Future Order, In [facility] ?? 2.??Insomnia??G47.00 He has some difficulty falling asleep and getting back to sleep. Sleep hygiene discussed, he is advised to get out of bed if he cant get to sleep in 15-20 minutes, he is advised to avoid sleeping on the couch before bed. He was prescribed trazodone by his PCP which works well for him and I encouraged him to take this more regularly. It helps his anxiety as well which appears to contribute to his insomnia. ??Will treat ZELALEM as above and continue to monitor. Ordered: Follow-Up Appointment Request TATA, *Est. 01/23/23 +/- 14 days, Future Order, In [facility] ?? 3.??Restless leg syndrome??G25.81 He has symptoms several times a week in the evening and trying to sleep. He is also aware of leg twitching at ties. His PSG many years ago did show PLMS. Will treat ZELALEM as above and may consider a dopamine agonist. His last caffeine is in the morning and no chocolate. 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 Ordered: Follow-Up Appointment Request SHABANAY, *Est. 01/23/23 +/- 14 days, Future Order, In [facility] ?? Referral Orders Referral Management, Medical Service: Other, Reason: Dispense Resmed CPAP 6- 16 cm, in office set-up [facility], Start: 11/23/22 Problem List/Past Medical History Ongoing Annual physical exam Blood chemistry abnormal Elevated liver enzymes level Insomnia Melanocytic nevus Obstructive sleep apnea syndrome Pain of left hip joint Periodic leg movements of sleep Primary impotence Rheumatic disease of mitral valve Shoulder joint pain 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 Historical No qualifying data Procedure/Surgical History ???Vasectomy (07/02/2013)???Repair of umbilical hernia (1977) Medications EPINEPHrine 0.3 mg injectable kit, 0.3 mg, IM, Once, PRN traZODone 50 mg oral tablet, 50 mg= 1 tab, Oral, TID Allergies BEE VENOM PROTEIN (HONEY BEE)??(Anaphylactic reaction) No Known Medication Allergies Social History Electronic Cigarette/Vaping Electronic Cigarette Use: Never. Tobacco Never tobacco user Tobacco Use:. Family History COPD - Chronic obstructive pulmonary disease: Mother. Melanoma in situ: Father. Obstructive sleep apnea: Father. Immunizations Vaccine Date Status influenza, unspecified formulation - Not Given Comments : Patient Refuses Patient declined - 06/19/2021 tetanus-diphth toxoids (Td) adult/adol 08/05/2018 Recorded tetanus/diphth/pertuss (Tdap) adult/adol 03/13/2008 Recorded Electronically Signed on 11/23/22 10:00 AM Lesly Carbajal TRACK CAR OPERATOR * Efren Tucker: PERFORM Event Display: Office Clinic Note Physician Authored Date: [id number] Patient Name JAIRO DAVENPORT (42yo, M) ID# [id number] Appt. Date/Time 05/27/2018 10:45AM 1975 Service Dept. [facility] Provider LESLY CARBAJAL NP Insurance Med Primary: [place] Insurance # : [id number] Policy/Group # : [id number] Employer Name : [employer] Prescription: CMX - Member is eligible. details Chief Complaint SLEEP CLINIC New Adult Patient Patient's Care Team Primary Care Provider: ELIUD DEWEY DO Patient's Pharmacies [facility] ([facility]): [address], [place] [address], Ph [phone], Vitals Ht: 5 ft 8.25 in (173.36 cm) 05/27/2018 10:48 am Wt: 163.9 lbs (74.34 kg) 05/27/2018 10:50 am BMI: 24.7 05/27/2018 10:50 am BP: 119/98 sitting L arm 05/27/2018 10:50 am BP Cuff Size: adult 05/27/2018 10:50 am Pulse: 57 bpm 05/27/2018 10:49 am O2Sat: 98% 05/27/2018 10:49 am Notes: neck: 15 inches 05/27/2018 10:49 am Allergies Reviewed Allergies NKDA Medications Reviewed Medications Kenalog 40 mg/mL suspension for injection Take 1 mL by injection route. 12/30/17 filled [facility] traMADol 50 mg tablet Take 1 tablet(s) every 6 hours by oral route for 10 days. 12/30/17 filled [facility] Vaccines Vaccines not reviewed (last reviewed 12/30/2017) Vaccine Type Date Amt. Route Site Lot # Mfr. Exp. Date Date on VIS VIS Given [employer] Diphtheria, Tetanus, Pertussis Tdap 03/13/08 Problems Reviewed Problems Periodic leg movements of sleep - Onset: 05/27/2018 Impacted cerumen in left ear Obstructive sleep apnea syndrome - PSG 11/19/12 AHI 6.2/hr, 02 92%, History of urinary tract infection Increased frequency of urination Blood chemistry abnormal Insomnia Finding of esophagus Abrasion, abdominal wall Lack of energy Headache Shoulder joint pain At risk - finding Pain of left hip joint Impotence Melanocytic nevus Pharyngitis Streptococcal sore throat Abnormal finding on evaluation procedure Exposure to communicable disease Verruca vulgaris Candidiasis of mouth Rheumatic disease of mitral valve Family History Mother; In good health Maternal Grandfather; diabetes Father; In good health, had melonoma a few years ago with spot being removed. Obstructive sleep apnea. Paternal Grandfather; diabetes Mother; In good health. COPD from smoking Social History Reviewed Social History [facility] General Social History List Smoking Status: Former smoker Alcohol intake: Occasional Are you currently employed?: Y Live alone or with others?: with others Hand Dominance: Right Surgical History Surgical History not reviewed (last reviewed 12/30/2017) Past Medical History Notes: Hip X-ray[06/01/2014] Magnetic resonance imaging of left hip without contrast (25056)[09/26/2014] EKG[05/19/2007] HPI REASON FOR VISIT: Jairo Davenport is seen in consultation at the request of [facility] for evaluation of previously diagnosed ZELALEM. HPI: Jairo has a history of insomnia, impotence, rheumatic dz of mitral valve and ZELALEM. He was last seen in our clinic by Dr. Butts on 12/06/12. He had a PSG 11/19/12 (BMI 25.1), AHI 6.2/hr, 02 siva 92%, PLMi 23.6/hr, PLMai 3.1/hr. At his last visit treatment options were discussed and he was referredto Dr. Herrera. Last note from Dr. Herrera dated 02/12/15 states he declined treatment due to financial concerns. Jairo tells me he never did start treatment. Jairo feels his biggest problem with sleep is waking up a lot . He typically goes to bed at 8pm. It takes 30 minutes to fall asleep. He wakes up several times a night for unknown reason or reflux and it takes a few minutes to get back to sleep. He gets up at 4am to start his day. He does not take naps. He has disturbances to his sleep to include having TV in the bedroom at night. He sleeps with someone in a bed on a regular coil mattress . ESS today is 12 SLEEP QUALITY: Feels quality of sleep most nights is unsatisfactory . DAYTIME ALERTNESS: Reports level of alertness most days to be foggy . PSYCH SYMPTOMS: Has noted worsening memory and concentration. Does have irritability, depression, and anxiety. Has noted difficulty with calculations. INSOMNIA SYMPTOMS: Does have an active mind at night. Does have stressful thoughts interfering withsleep. Does watch the clock throughout the night or worry about getting a good night's sleep. Does startle awake. BREATHING SYMPTOMS: Does have mouth breathing. Does have loud snoring. Does have witnessed apnea. Does have nocturnal choking/gasping/dyspnea. Does have nasal congestion at night. MOVEMENT SYMPTOMS: Does have tossing & turning. Does have any excessive leg or arm moving in sleep. . Does not have any uncomfortable sensation in legs at night that is associated with an irresistible urge to move them. Does not have sleep walking or talking. DREAM SYMPTOMS: Does not have recurring dreams/nightmares. Does have dreams of suffocating/drowning. Does not dream shortly after falling asleep. Does not act out dreams. Has not had episodes of dreaming while still awake. CATAPLEXY SYMPTOMS: Does not have episodes of sudden weakness with strong emotions. Does not have symptoms consistent with sleep paralysis. DRIVING: Has not fallen asleep or nearly fallen asleep driving. Has not had an accident related to drowsy driving. Does forget the last few miles or minutes while driving. ROS Additionally reports: headaches, trouble swalloing, dry mouth in am, heartburn, shoulder pain, itching, night sweats ROS as noted in the HPI Physical Exam Patient is a 42-year-old male. General: A&O, well groomed normal weight . HEAD: normocephalic & atraumatic. EYES: non icteric. LUNGS: CTA all manriquez. Good air movement. CARDIO: RRR without murmur, gallop or thrill. NEURO: A&O. Normal gait. PSYCH: Normal mood and affect. CUTANEOUS: no overt lesions or rashes Assessment / Plan 1. Obstructive sleep apnea syndrome - ZELALEM with an AHI of 6.2/hr diagnosed in 2013. He never started treatment after being evaluated for an oral appliance due to financial concerns. He has several symptoms that may be from his untreated sleep apnea and he is interested in pursuing treatment at this time.. His weight has not significantly changed and I do not think another PSG is medically necessary at this time. I covered treatment options with him to include an oral appliance and CPAP therapy. I also discussed ENT surgery but wouldnot recommend surgery for first line treatment. He was concerned that he would not be able to tolerate the oral appliance and decided to start with a CPAP. A prescription for CPAP 6-16cm is ordered. I discussed different mask options and the importance of finding the mask that will work for him within the first 30 days. I discussed how to adjust humidity for dryness/congestion and that the goal will be to use nightly for his total sleep time. I covered insurance compliance requirements and [facility]'s mask exchange policy. I will see him back between 31-90 days after starting CPAP and he is encouraged to call me sooner if he is having any difficulties tolerating CPAP. Drowsy driving precautionswere reviewed. I provided greater than 45 minutes in the care of this patient, more than half the time was spent in [id number] counseling. G47.33: Obstructive sleep apnea (adult) (pediatric) CPAP MACHINE - Dispense CPAP 6-16 cm with heated humidity, compliance capabilities, supplies PRN and mask of choice. NPI #[id number] Qty: 1 Unit Refills: 0 Supplier: [employer] 2. Periodic leg movements of sleep - PLMi 23.6/hr, PLMai 3.1/hr during his PSG. He denies any RLS symptoms but his notes he has frequent leg movement in sleep so will consider treatment with dopamine agonist if he continues to havefragmented sleep or daytime sleepiness once ZELALEM is treated. G47.61: Periodic limb movement disorder Return to Office to see LESLY CARBAJAL NP at [facility] on or around 05/27/2018 LESLY CARBAJAL NP for Office 30 at [facility] on 08/10/2018 at 02:45 PM Electronically Signed on 11/18/22 01:41 PM Efren Tucker Patient Care team information Care Team Personnel Name: Eliud Dewey DO Position: Physician Member Role: Primary Care Physician Address: Address: [facility] [address] [address]- Care Team Related Persons Name: MAT DAVENPORT
--- OUTSIDE RECORDS SUMMARY | 2024-09-13 13:30 | XMS_ITS | Encounter Summary ---
Author Organization [facility] Address [address] [place] [address] Care Team Providers Care Dining Room Manager Name Role Phone Alfredo Emanuel DO Primary Care Provider [phone] Encounter Details Date Type Department Care Team (Late st Contact Info) Description 10/19/2023 Lab Requisition [facility] Pathology & Laboratory Medicine - [address] [address] Outr Resulting Lab, Provider Social History Tobacco Use Types Packs/Day Years Used Date Smoking Tobacco: Former Cigarettes Q uit: 10/17/2001 Alcohol Use Standard Drinks/Week Comments Yes 0 (1 standard drink = 0.6 oz pur e alcohol) occasional Sex and Gender Information Value Date Recorded Sex Assigned at Not on file Legal Sex Male 17:32 EST Gender Identity Male 09/29/2021 10:12 EST Sexual Orientation Not on file documented as of this encounter Plan of Treatment Not on file documented as of this encounter Procedures Procedure Name Priority Date/Time Associated Diagnosis Comments PROLACTIN Routine 10/19/2023 7:27 EDT TESTOSTERONE, TOTAL AND FREE Routine 10/19/2023 7:27 EDT LH Routine 10/19/2023 7:27 EDT FSH Routine 10/19/2023 7:27 EDT documented in this encounter Results * TESTOSTERONE, TOTAL AND FREE (10/19/2023 7:27 EDT) Testosterone 416 229 - 902 ng/dL 10/19/2023 22:14 EDT [facility] Comment:The results of this assay can be falsley elevated due to the consumption of Biotin. Sex Hormone Bnd Glob 18.6 11.5 - 54.5 nmol/L 10/19/2023 22:14 EDT [facility] Comment:The results of this assay can be falsely lowered due to the consumption of Biotin. Free Testosterone 11.3 4.0 - 14.5 ng/dL 10/19/2023 22:14 EDT [facility] Blood VENOUS BLOOD / Unknown 10/19/2023 7:27 EDT 10/19/2023 20:59 EDT Narrative [facility] - 10/19/2023 22:14 EDT This test is not recommended in patients with plasma protein abnormalities. us Provider Outr Resulting Lab CHEMISTRY & BLOOD GA S ORDERABLES Final Result [facility] [address] [place] [address] * LH (10/19/2023 7:27 EDT) Luteinizing Hormone 2.6 1.5 - 9.3 mIU/mL 10/19/2023 22:12 EDT [facility] Blood VENOUS BLOOD / Unknown 10/19/2023 7:27 EDT 10/19/2023 20:59 EDT us Provider Outr Resulting Lab CHEMISTRY & BLOOD GA S ORDERABLES Final Result [facility] [address] [place] [address] * FSH (10/19/2023 7:27 EDT) FSH 5.5 1.4 - 18.1 mIU/mL 10/19/2023 22:13 EDT [facility] Blood VENOUS BLOOD / Unknown 10/19/2023 7:27 EDT 10/19/2023 20:59 EDT us Provider Outr Resulting Lab CHEMISTRY & BLOOD GA S ORDERABLES Final Result Performing Organization Address [facility] Co de Phone Number [facility] [address], [place] [id number] * PROLACTIN (10/19/2023 7:27 EDT) [facility] Signature Prolactin 5.0 2.1 - 17.7 ng/mL 10/19/2023 22:11 EDT [facility] Blood VENOUS BLOOD / Unknown 10/19/2023 7:27 EDT 10/19/2023 20:59 EDT us Provider Outr Resulting Lab CHEMISTRY & BLOOD GA S ORDERABLES Final Result Performing Organization Address [facility] de Phone Number [facility] [address], [place] [address] documented in this encounter Visit Diagnoses Not on filedocumented in this encounter Care Teams Dining Room Manager Relationship Specialty Start Date End Date Alfredo Emanuel DO PCP - General 07/14/13 documented as of this encounter
--- OUTSIDE RECORDS SUMMARY | 2024-09-13 13:30 | XMS_ITS | Encounter Summary ---
[place] [address] Care Team Providers Care Regulatory Services Consultant Name Role Phone Eduar Landry Primary Care Provider [phone] Reason for Referral * Consultation (Routine) - Closed Specialty Diagnoses / Procedures Referred By Aime mcadams Referred To Contact Endocrinology Diagnoses Decreased libido Eduar Landry PA [address] [place] [address] [facility] [address] [place] [phone] Referral ID Status Reason Start Date Expiration Date V isits Requested Visits Authorized [id number] Closed Consult, Test & Treat PCP Updated and/or Approved 05/13/2023 11/08/2023 6 6 Encounter Details Date Type Department Care Team (Late st Contact Info) Description 05/19/2023 Transcribe Orders eD Incoming Referrals [phone] dEuar Landry PA [address] [place], [place] [address] Decreased libido Social History Tobacco Use Types Packs/Day Years Used Date Smoking Tobacco: Never Assessed Sex and Gender Information Value Date Recorded Sex Assigned at Not on file Gender Identity Not on file Sexual Orientation Not on file documented as of this encounter Plan of Treatment Scheduled Referrals Name Type Priority Associated Diagnoses Order Schedule Referral to Endocrinology Outpatient Referral Routine Decreased libido Ordered: 05/19/2023 documented as of this encounter Visit Diagnoses Diagnosis Decreased libido documented in this encounter Care Teams Regulatory Services Consultant Relationship Specialty Start Date End Date Eduar Landry PA [address] [place] [address] PCP - General Family Medicine 05/19/23 documented as of this encounter
--- OUTSIDE RECORDS SUMMARY | 2024-09-13 13:31 | XMS_ITS | Encounter Summary ---
Author Organization [facility] Address [address] [place] [address] Care Team Providers Care Cleaning Manager Name Role Phone Alfredo Emanuel DO Primary Care Provider [phone] Encounter Details Date Type Department Care Team (Late st Contact Info) Description 05/10/2023 Lab Requisition [facility] Pathology & Laboratory Medicine - [address] [id number] Outr Resulting Lab, Provider Social History Tobacco [...] Procedure Name Priority Date/Time Associated Diagnosis Comments TESTOSTERONE, TOTAL AND FREE Routine 05/10/2023 9:12 EDT documented in this encounter Results * TESTOSTERONE, TOTAL AND FREE (05/10/2023 9:12 EDT) Testosterone 267 229 - 902 ng/dL 05/11/2023 9:34 EDT [facility] Comment:The results of this assay can be falsley elevated due to the consumption of Biotin. Sex Hormone Bnd Glob 20.5 11.5 - 54.5 nmol/L 05/11/2023 9:34 EDT [facility] Comment:The results of this assay can be falsely lowered due to the consumption of Biotin. Free Testosterone 6.7 4.0 - 14.5 ng/dL 05/11/2023 9:34 EDT [facility] Blood VENOUS BLOOD / Unknown 05/10/2023 9:12 EDT 05/10/2023 21:40 EDT Narrative [facility] - 05/11/2023 9:34 EDT This test is not recommended in patients with plasma protein abnormalities. us Provider Outr Resulting Lab CHEMISTRY & BLOOD GA S ORDERABLES Final Result [facility] [address] [place] [address] documented in this encounter Visit Diagnoses Not on filedocumented in this encounter Care Teams Cleaning Manager Relationship Specialty Start Date End Date Alfredo Emanuel DO PCP - General 07/14/13 documented as of this encounter
--- OUTSIDE RECORDS SUMMARY | 2024-09-13 13:31 | XMS_ITS | Encounter Summary ---
Author Organization [facility] Address [address] [place] [address] Care Team Providers Care Milling Machine Operator Name Role Phone Alfredo Emanuel DO Primary Care Provider [phone] Encounter Details Date Type Department Care Team (Late st Contact Info) Description 10/11/2020 Lab Requisition [facility] Pathology & Laboratory Medicine - [address] [id number] Outr Resulting Lab, Provider Social History Tobacco [...] Procedure Name Priority Date/Time Associated Diagnosis Comments TESTOSTERONE Routine 10/11/2020 6:58 EST documented in this encounter Results * TESTOSTERONE (10/11/2020 6:58 EST) Testosterone 498 229 - 902 ng/dL 10/11/2020 22:55 EST [facility] Blood VENOUS BLOOD / Unknown 10/11/2020 6:58 EST 10/11/2020 21:54 EST Narrative [facility] - 10/11/2020 22:55 EST The results of this assay can be falsley elevated due to the consumption of Biotin. us Provider Outr Resulting Lab CHEMISTRY & BLOOD GA S ORDERABLES Final Result Performing Organization Address City/State/[facility] Co de Phone Number [facility] [address] [place] [address] documented in this encounter Visit Diagnoses Not on filedocumented in this encounter Care Teams Milling Machine Operator Relationship Specialty Start Date End Date Alfredo Emanuel DO PCP - General 07/14/13 documented as of this encounter
--- OUTSIDE RECORDS SUMMARY | 2024-09-13 13:31 | XMS_ITS | Encounter Summary ---
Author Organization [facility] Address [address] [place] [address] Care Team Providers Care Hat Checker Name Role Phone Rosa M Jackman NP Primary Care Provider [phone] Unknown, Provider Primary Care Provider Alfredo Ramos DO Primary Care Provider [phone] Reason for Visit * Reason Onset Date Comments Requesting Sooner Appointment 06/27/2013 Requesting Sooner Appointment 06/30/2013 Encounter Details Date Type Department Care Team (Late st Contact Info) Description 06/27/2013 Telephone [facility] Urology - [facility] [address] [place], [place] [id number] Fernando Khan MD [address] [facility], [address] [place] [address] Requesting Sooner Appointment; Requesting Sooner Appointment Social History Tobacco Use Types Packs/Day Years [...] on file documented as of this encounter Miscellaneous Notes * Telephone Encounter - Grace Lakhani - 06/30/2013 2231 EST NOTHING SOONER AVAILABLE SPOKE TO * Telephone Encounter - Nilam Grajeda - 06/30/2013 1603 EST Pt would like to know if there is a sooner appt available. Please call pt. * Telephone Encounter - Esme Vital - 06/27/2013 0837 EST Pt requesting sooner appt than 07/14. Please call if anything becomes available. documented in this encounter Plan of Treatment Not on file documented as of this encounter Visit Diagnoses Not on filedocumented in this encounter Care Teams Hat Checker Relationship Specialty Start Date End Date Rosa M Jackman NP [address] [place] [address],[address] [place] [id number] PCP - General 04/26/13 07/12/13 Unknown, Provider, PCP - General 07/13/13 07/13/13 Alfredo Emanuel DO PCP - General 07/14/13 documented as of this encounter
--- OUTSIDE RECORDS SUMMARY | 2024-09-13 13:31 | XMS_ITS | Encounter Summary ---
Author Organization [facility] Address [address] [place] [address] Care Team Providers Care Nurse Consultant Name Role Phone Jenae Alfredo Mario ROD Primary Care Provider [phone] Reason for Visit * Reason Comments Follow-up POST VASECTOMY DROP OFF SAMPLE Encounter Details Date Type Department Care Team (Late st Contact Info) Description 10/10/2013 8:45 EDT Office Visit [facility] Urology - [facility] [address] [place], [place] [phone] Fernando Khan MD [address] [facility], [address] [place] [address] Sterilization (Primary Dx) Discharge Disposition: Auto Discharge Social History Tobacco Use Types Packs/Day Years [...] on file documented as of this encounter Discharge Diagnoses Diagnosis V25.2 STERILIZATION[ICD-9-CM] documented in this encounter Discharge Disposition Disposition Code Departure Means Destination Auto Discharge documented in this encounter Progress Notes * Fernando Khan MD - 10/10/2013 0843 EDT Carroll Davenport underwent vasectomy 07/14/13. A semen analysis today showed zero sperm over 20 high power manriquez. documented in this encounter Plan of Treatment Not on file documented as of this encounter Visit Diagnoses Diagnosis Sterilization- Primary documented in this encounter Care Teams Nurse Consultant Relationship Specialty Start Date End Date Alfredo Emanuel DO PCP - General 07/14/13 documented as of this encounter
--- OUTSIDE RECORDS SUMMARY | 2024-09-13 13:31 | XMS_ITS | Encounter Summary ---
Author Organization [facility] Address [address] [place] [address] Care Team Providers Care Clinical Lab Assistant Name Role Phone Alfredo Emanuel DO Primary Care Provider [phone] Encounter Details Date Type Department Care Team (Late st Contact Info) Description 11/02/2022 Lab Requisition [facility] Pathology & Laboratory Medicine - [address] [id number] Outr Resulting Lab, Provider Social History Tobacco [...] Diagnosis Comments TESTOSTERONE, TOTAL AND FREE Routine 11/02/2022 8:57 EDT documented in this encounter Results * TESTOSTERONE, TOTAL AND FREE (11/02/2022 8:57 EDT) Testosterone 333 229 - 902 ng/dL 11/02/2022 22:[address] [facility] Comment:The results of this assay can be falsley elevated due to the consumption of Biotin. Sex Hormone Bnd Glob 20.8 11.5 - 54.5 nmol/L 11/02/2022 22:[address] [facility] Comment:The results of this assay can be falsely lowered due to the consumption of Biotin. Free Testosterone 8.4 4.1 - 15.2 ng/dL 11/02/2022 22:[address] [facility] Blood VENOUS BLOOD / Unknown 11/02/2022 8:57 EDT 11/02/2022 21:45 EDT [address] [facility] - 11/02/2022 22:59 EDT This test is not recommended in patients with plasma protein abnormalities. us Provider Outr Resulting Lab CHEMISTRY & BLOOD GA S ORDERABLES Final Result [facility] [address] [place] [address] documented in this encounter Visit Diagnoses Not on filedocumented in this encounter Care Teams Clinical Lab Assistant Relationship Specialty Start Date End Date Alfredo Emanuel DO PCP - General 07/14/13 documented as of this encounter
--- OUTSIDE RECORDS SUMMARY | 2024-09-13 13:31 | XMS_ITS | Encounter Summary ---
Author Organization [facility] Address [address] [place] [address] Care Team Providers Care Delivery Crew Member Name Role Phone Jenae Alfredo Mario ROD Primary Care Provider [phone] Reason for Visit * Reason Onset Date Comments Suture / Staple Removal 07/28/2013 Encounter Details Date Type Department Care Team (Late st Contact Info) Description 07/28/2013 Telephone [facility] Urology - [facility] [address] [place], [place] [phone] Fernando Khan MD [address] [facility], [address] [place] [address] Suture / Staple Removal Social History Tobacco Use Types Packs/Day Years [...] encounter Miscellaneous Notes * Telephone Encounter - Batool Marin RN - 07/28/2013 1106 EST Pts advised that sutures will dissolve on their own * Telephone Encounter - Lima Eden - 07/28/2013 1013 EST Pt had a vasectomy 2 weeks ago and still has the stitches, unsure if they will disolve on their own- pls advise further documented in this encounter Plan of Treatment Not on file documented as of this encounter Visit Diagnoses Not on filedocumented in this encounter Care Teams Delivery Crew Member Relationship Specialty Start Date End Date Alfredo Emanuel DO PCP - General 07/14/13 documented as of this encounter
--- OUTSIDE RECORDS SUMMARY | 2024-09-13 13:31 | XMS_ITS | Encounter Summary ---
Author Organization [facility] Address [address] [place] [address] Care Team Providers Care Bed Manager Name Role Phone Alfredo Emanuel DO Primary Care Provider [phone] Reason for Visit * Reason Onset Date Comments Sterilization 09/04/2013 in [facility] 2013 Encounter Details Date Type Department Care Team (Late st Contact Info) Description 09/04/2013 Telephone [facility] Urology - [facility] [address] [place], [place] [phone] Fernando Khan MD [address] [facility], [address] [place] [address] Sterilization (in mv2012) Social History Tobacco Use Types Packs/Day Years [...] encounter Miscellaneous Notes * Telephone Encounter - Cat Velarde - 09/05/2013 1128 EST CALLED PT WITH APPOINTMENT TIME * Telephone Encounter - Cristal Alexis V. - 09/04/2013 1558 EST Patient had a vasectomy in July and cannot remember when he is supposed to come back with a sample. documented in this encounter Plan of Treatment Not on file documented as of this encounter Visit Diagnoses Not on filedocumented in this encounter Care Teams Bed Manager Relationship Specialty Start Date End Date Alfredo Emanuel DO PCP - General 07/14/13 documented as of this encounter
--- OUTSIDE RECORDS SUMMARY | 2024-09-13 13:31 | XMS_ITS | Encounter Summary ---
Author Organization [facility] Address [address] [place] [address] Care Team Providers Care Group Fitness Assistant Department Head Name Role Phone Unavailable Primary Care Provider Unavailabl e Encounter Details Date Type Department Care Team (Latest Contact Info) Description 03/20/2000 9:40 EDT - 03/20/2000 11:59 EDT Hospital Encounter [address] [address] Earl Montes MD Discharge Disposition: Auto Discharge Social History Tobacco Use Types Packs/Day Years Used Date Smoking Tobacco: Never Assessed Sex and Gender Information Value Date Recorded Sex Assigned at Not on file Legal Sex Male 17:32 EST Gender Identity Male 09/29/2021 10:12 EST Sexual Orientation Not on file documented as of this encounter Discharge Disposition Disposition Code Departure Means Destination Auto Discharge documented in this encounter Plan of Treatment Not on file documented as of this encounter Visit Diagnoses Not on filedocumented in this encounter
--- OUTSIDE RECORDS SUMMARY | 2024-09-13 13:31 | XMS_ITS | Encounter Summary ---
Author Organization [facility] Address [address] [place] [address] Care Team Providers Care Wildlife Management Professor Name Role Phone Alfredo Emanuel DO Primary Care Provider Reason for Visit * Reason Onset Date Comments Results 10/12/201310/10 labs Encounter Details Date Type Department Care Team (Late st Contact Info) Description 10/12/2013 Telephone [facility] Urology - [facility] [address] [place], [place] [phone] Fernando Khan MD [address] [facility], [address] [place] [address] Results (10/10 labs) Social History Tobacco Use Types Packs/Day Years [...] Telephone Encounter - Batool Marin RN - 10/12/2013 1127 EDT Pt advised of absent sperm in semen analysis * Telephone Encounter - Esme Vital - 10/12/2013 1028 EDT Pt calling for results of 10/10 labs. Please call. documented in this encounter Plan of Treatment Not on file documented as of this encounter Visit Diagnoses Not on filedocumented in this encounter Care Teams Wildlife Management Professor Relationship Specialty Start Date End Date Alfredo Emanuel DO PCP - General 07/14/13 documented as of this encounter
--- OUTSIDE RECORDS SUMMARY | 2024-09-13 13:31 | XMS_ITS | Encounter Summary ---
Author Organization [facility] Address [address] [place] [address] Care Team Providers Care Chair Car Attendant Name Role Phone Rosa M Jackman NP Primary Care Provider [phone] Unknown, Provider Primary Care Provider Alfredo Ramos DO Primary Care Provider [phone] Reason for Visit * Reason Onset Date Comments Appointment Related 04/21/2013 Appointment Related 04/28/2013 PVA Encounter Details Date Type Department Care Team (Late st Contact Info) Description 04/21/2013 Telephone [facility] - [address] [phone] Fernando Khan MD 111 [facility], [address] [place] [address] Appointment Related; Appointment Related (PVA) Social History Tobacco Use Types Packs/Day Years Used Date Smoking Tobacco: Never Assessed Sex and Gender Information Value Date Recorded Sex Assigned at Not on file Legal Sex Male 17:32 EST Gender Identity Male 09/29/2021 10:12 EST Sexual Orientation Not on file documented as of this encounter Miscellaneous Notes * Telephone Encounter - Grace Lakhani - 04/28/2013 2005 EDT RESCHEDULED APPOINTMENT * Telephone Encounter - Nilam Grajeda - 04/28/2013 0831 EDT Per pt will not be able to make 04/28/13 appt - awaiting a call back to reschedule on a . * Telephone Encounter - Liliya Lucia - 04/24/2013 1519 EDT Called could not leave message * Telephone Encounter - Lima Eden - 04/21/2013 1533 EDT Pt calling to re-sched 04/28 PVA to a documented in this encounter Plan of Treatment Not on file documented as of this encounter Visit Diagnoses Not on filedocumented in this encounter Care Teams Chair Car Attendant Relationship Specialty Start Date End Date Rosa M Jackman NP [address] [place] [address],[address] [place] [phone] PCP - General 04/26/13 07/12/13 Unknown, Provider, PCP - General 07/13/13 07/13/13 Alfredo Emanuel DO PCP - General 07/14/13 documented as of this encounter
--- OUTSIDE RECORDS SUMMARY | 2024-09-13 13:31 | XMS_ITS | Encounter Summary ---
Author Organization [facility] Address [address] [place] [address] Care Team Providers Care Dispenser Operator Name Role Phone Rosa M Jackman NP Primary Care Provider [phone] Reason for Visit * Reason Comments Pre-Vasectomy Encounter Details Date Type Department Care Team (Late st Contact Info) Description 05/23/2013 14:45 EDT Office Visit [facility] Urology - [facility] [address] [place], [place] [phone] Fernando Khan MD [address] [facility], [address] [place] [address] Sterilization (Primary Dx) Social History Tobacco Use Types Packs/Day Years [...] as of this encounter Discharge Diagnoses Diagnosis V25.09 CONTRACEPTIVE MANGMT NEC[ICD-9-CM] documented in this encounter Ordered Prescriptions Prescription Sig Dispense Quantity Refills Last Filled Start Date End Date DIAZepam (VALIUM) 5 mg tablet 1-2 tabs 1 hour prior to procedure. 2 Tab 0 05/23/2013 documented in this encounter Progress Notes * Fernando Khan MD - 05/23/2013 1438 EDT Chief Complaint: Chief Complaint Patient presents with ??? Pre-Vasectomy Reason for Consult: Urology was asked to see Carroll in consultation at the request of Rosa M Jackman NP for evaluation of undesired fertility. HPI: Carroll is a 37 y.o. male with 5 children aged 4 months to 11 years. He is and his is 29 years old. They are currently using condoms. He understands that vasectomy is a permanent procedure. He has had no problems with fertility. Patient Active Problem List Diagnosis ??? Sterilization PMH PSH No past medical history on file. No past surgical history on file. Social History Family History History Substance Use Topics ??? Smoking status: Not on file ??? Smokeless tobacco: Not on file ??? Alcohol Use: Not on file No family history on file. Medications No current outpatient prescriptions on file. Allergies No Known Allergies Review of Systems: Negative for fevers, chills, chest pain, shortness of breath, nausea, joint pain, muscle pain, dysuria, numbness, change in vision, endocrine problems or skin rashes. Objective/Physical Exam: Vital Signs: There were no vitals taken for this visit. Exam: Constitutional: Alert, in no distress. Lymph: Neck supple without lymphadenopathy Respiratory: Respirations unlabored. Cardiovascular: Pulse regular. Gastrointestinal: Abdomen soft, non tender. Renal: No CVA tenderness. Genital: Non circumcised phallus with patent meatus at the tip, no lesions. Testes descended bilaterally without masses. Vasa palpable bilaterally without discomfort. Musculoskeletal: Extremities warm without edema. Skin: Skin warm and dry. Impression: 37 year old man with undesired fertility. We discussed the risks of vasectomy includingbleeding, infection, failure of the procedure and chronic scrotal pain. He was provided with information about sperm cryopreservation. We stressed the permanent nature of this procedure and the need for an alternate method of contraception until azoospermia has been confirmed on semen analysis to be done 10 to 12 weeks after the procedure. He was given a prescription for 5-10 mg diazepam to be taken one hour prior to the procedure. Suggestions/Recommendations: He may schedule a vasectomy at his convenience. Thank you for consulting us in the care of Carroll Davenport. We will, of course, continue to keep you informed of the patient's urological care and the results of our further evaluation. Fernando Khan MD documented in this encounter Plan of Treatment Not on file documented as of this encounter Visit Diagnoses Diagnosis Sterilization- Primary documented in this encounter Care Teams Dispenser Operator Relationship Specialty Start Date End Date Rosa M Jackman NP [address] [place] [address],[address] [place] [phone] PCP - General 04/26/13 07/12/13 documented as of this encounter
--- OUTSIDE RECORDS SUMMARY | 2024-09-13 13:31 | XMS_ITS | Encounter Summary ---
Author Organization [facility] Address [address] [place] [address] Care Team Providers Care Sewer And Drain Technician Name Role Phone Jenae Alfredo Mario ROD Primary Care Provider [phone] Reason for Visit * Reason Comments Sterilization Encounter Details Date Type Department Care Team (Late st Contact Info) Description 07/14/2013 14:30 EST Office Visit [facility] Urology - [facility] [address] [place], [place] [phone] Fernando Khan MD [address] [facility], [address] [place] [address] Sterilization (Primary Dx) Social History [...] Diagnosis V25.2 STERILIZATION[ICD-9-CM] documented in this encounter Ordered Prescriptions Prescription Sig Dispense Quantity Refills Last Filled Start Date End Date HYDROcodone-acetami nophen (LORTAB) 5-500 mg tablet Take 1 Tab by mouth every 6 hours as needed for Pain. 15 Tab 0 07/14/2013 documented in this encounter Progress Notes * Fernando Khan MD - 07/14/2013 1719 EST DIVISION OF UROLOGY PROCEDURE REPORT SERVICE DATE: 07/14/2013 PREOPERATIVE DIAGNOSIS: Encounter Diagnosis Name Primary? Sterilization Yes PROCEDURE: Vasectomy SURGEON: Fernando Khan MD ANESTHESIA: 4 mL 2% Lidocaine. POSTOPERATIVE DIAGNOSIS: Undesired fertility INDICATIONS: Carroll is a 37 y.o. man with undesired fertility. After discussing the risks and alternatives to permanent sterilization with bilateral vasectomy, he elected to proceed. NARRATIVE: The patient took 10 mg PO diazepam about 1 hour prior to the procedure. He was placed supine on the procedure table and the genitalia were clipped, prepped and draped in sterile fashion. Beginning on the left side, the vas was grasped and brought to the surface lateral to the spermatic cord. The skin overlying the vas and the leisa-vasal tissues were infiltrated with 2 cc of Lidocaine. An 8 mm incision was made through the skin with a #15 blade. The sharp hemostat was used to gently spread parallel to the vas on either side. A vas ring forceps was used to grasp the vas and pull it out of the incision. Further dissection of the leisa-vasal tissues was then carried out with the sharp hemostat and the vas ring forceps. Once adequately mobilized, two 3-0 silk suture ligatures were placed through the vas about 2 cm apart. The intervening segment of vas was excised and the presence of the vasal lumen confirmed with one mir of the sharp hemostat. The cut surfaces of the vas were then cauterized. One of the cut ends was then covered with a layer of Dartos with a [id number] 3-0 chromic suture. The skin was then closed with a horizontal mattress suture of 3-0 chromic. The same procedure was then repeated on the right side. Both incisions were dressed with antibiotic ointment, a gauze pad and a fluff dressing. The patient tolerated the procedure very well. PLAN: The patient was again reminded to use an alternative method of contraception until azoospermia has been confirmed. A semen analysis will be scheduled 12 weeks from now. He was provided with a prescription for hydrocodone/acetaminophen to be taken if needed and was advised to use ice as neededfor up to 30 minutes at a time and to limit strenuous activity for a few days. Fernando Khan MD 07/14/2013 documented in this encounter Plan of Treatment Not on file documented as of this encounter Results * POCT QUALITATIVE SEMEN ANALYSIS (10/10/2013 8:30 EDT) Qualitative Semen Analysis, POC Absent POINT OF CARE Body fluid specimen (specimen) 10/10/2013 8:30 EDT us Fernando Khan MD POINT OF CARE TEST ORDERA BLES Final Result POINT OF CARE documented in this encounter Visit Diagnoses Diagnosis Sterilization- Primary documented in this encounter Care Teams Sewer And Drain Technician Relationship Specialty Start Date End Date Alfredo Emanuel DO PCP - General 07/14/13 documented as of this encounter
--- OUTSIDE RECORDS SUMMARY | 2024-09-13 13:31 | XMS_ITS | Encounter Summary ---
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, Acc Phlebotomy Toxic effect of venom of hornets, unintentional, subsequent encounter (Primary Dx); Drug-induced anaphylaxis, subsequent encounter; Allergic urticaria Social History Tobacco Use Types Packs/Day Years [...] Procedure Name Priority Date/Time Associated Diagnosis Comments MISCELLANEOUS TEST, FLETCHER Routine 09/29/2021 10:46 EST Toxic effect of venom of hornets, unintentional, subsequent encounter Drug-induced anaphylaxis, subsequent encounter Allergic urticaria MISCELLANEOUS TEST, FLETCHER Routine 09/29/2021 10:46 EST Toxic effect of venom of hornets, unintentional, subsequent encounter Drug-induced anaphylaxis, subsequent encounter Allergic urticaria MISCELLANEOUS TEST, FLETCHER Routine 09/29/2021 10:46 EST Toxic effect of venom of hornets, unintentional, subsequent encounter Drug-induced anaphylaxis, subsequent encounter Allergic urticaria MISCELLANEOUS TEST, FLETCHER Routine 09/29/2021 10:46 EST Toxic effect of venom of hornets, unintentional, subsequent encounter Drug-induced anaphylaxis, subsequent encounter Allergic urticaria TRYPTASE, SERUM Routine 09/29/2021 10:46 EST Toxic effect of venom of hornets, unintentional, subsequent encounter Drug-induced anaphylaxis, subsequent encounter Allergic urticaria documented in this encounter Results * MISCELLANEOUS TEST, FLETCHER (09/29/2021 10:46 EST) Pathologist [facility] Miscellaneous Test, [place] SEE NOTE 09/30/2021 19:03 EST [facility] [employer] Comment: Test ? Result ? Flag ??Unit ??RefValue Yellow Jacket Venom, IgE ? <0.35 ?kU/L ?Class 0 (Negative <0.35) ?Test Performed by: ?[facility] ?[address] [place] [address] ?[employer]: Basim Mcnally M.D. Ph.D.; CLIA# [id number] Blood VENOUS BLOOD / Unknown Venipuncture / Unknown 09/29/2021 10:46 EST 09/29/2021 11:49 EST Myranda Sotelo MD CHEMISTRY & BLOOD GAS ORDERABLES Final Result Performing Organization Address City/[facility]/ZIP Co de Phone Number [facility] [address] [place] [address] * MISCELLANEOUS TEST, FLETCHER (09/29/2021 10:46 EST) Miscellaneous Test, [place] SEE NOTE 09/30/2021 18:53 EST [facility] Comment: Test ? Result ? Flag ??Unit ??RefValue Yellow Faced Hornet Venom, IgE ? <0.35 ?kU/L ?Class 0 (Negative <0.35) ?Test Performed by: ?[facility] ?[address] [place] [address] ?[employer] Printer: Basim Mcnally M.D. Ph.D.; IA# [id number] Blood VENOUS BLOOD / Unknown Venipuncture / Unknown 09/29/2021 10:46 EST 09/29/2021 11:49 EST Myranda Sotelo MD CHEMISTRY & BLOOD GAS ORDERABLES Final Result Performing Organization Address City/[facility]/ZIP Co de Phone Number [facility] [address] [place] [address] * MISCELLANEOUS TEST, FLETCHER (09/29/2021 10:46 EST) [facility] [place] SEE NOTE 09/30/2021 19:02 EST [facility] Comment: Test ? Result ? Flag ??Unit ??RefValue Wasp Venom, IgE ?<0.35 ?kU/L ?Class 0 (Negative <0.35) ?Test Performed by: ?[facility] [employer] [facility] ?[address] [place] [address] ?[employer] Printer: Basim Mcnally M.D. Ph.D.; CLIA# [id number] Blood VENOUS BLOOD / Unknown Venipuncture / Unknown 09/29/2021 10:46 EST 09/29/2021 11:50 EST us Myranda Sotelo MD CHEMISTRY & BLOOD GAS ORDERABLES Final Result [facility] [address] [place] [address] * MISCELLANEOUS TEST, LUCERO (09/29/2021 10:46 EST) Pathologist [facility] Miscellaneous Test, [place] SEE NOTE 09/30/2021 19:10 EST [facility] Comment: Test ? Result ? Flag ??Unit ??RefValue Honeybee Venom, IgE ?<0.35 ?kU/L ?Class 0 (Negative <0.35) ?Test Performed by: ?[facility] ?[address] [place] [address] ?[employer] Leaf Printer: Basim Mcnally M.D. Ph.D.; CLIA# [id number] Blood VENOUS BLOOD / Unknown Venipuncture / Unknown 09/29/2021 10:46 EST 09/29/2021 11:45 EST Myranda Sotelo MD CHEMISTRY & BLOOD GAS ORDERABLES Final Result Performing Organization Address [facility]/ZIP Co de Phone Number [facility] [address] [place] [address] * TRYPTASE, SERUM (09/29/2021 10:46 EST) Tryptase, S 3.0 <11.5 ng/mL 09/30/2021 18:47 EST [facility] Comment: Test Performed by: [place] [address] [employer] Printer: Basim Mcnally M.D. Ph.D.; CLIA# [id number] Blood VENOUS BLOOD / Unknown Venipuncture / Unknown 09/29/2021 10:46 EST 09/29/2021 12:02 EST us Myranda Sotelo MD IMMUNOLOGY AND SEROLOGY ORDERABL ES Final Result Performing Organization Address [facility]/ZIP Co de Phone Number [facility] [address] [place] [address] documented in this encounter Visit Diagnoses Diagnosis Toxic effect of venom of hornets, unintentional, subsequent encounter- Primary Drug-induced anaphylaxis, subsequent encounter Allergic urticaria documented in this encounter Care Teams Keno Clerk Relationship Specialty Start Date End Date Alfredo Emanuel DO PCP - General 07/14/13 documented as of this encounter
--- OUTSIDE RECORDS SUMMARY | 2024-09-13 13:31 | XMS_ITS | Encounter Summary ---
Author Organization [facility] Address [address] [place] [address] Care Team Providers Care Hand Etcher Helper Name Role Phone Unavailable Primary Care Provider Unavailabl e Encounter Details Date Type Department Care Team (Latest Contact Info) Description 04/22/2007 8:55 EDT - 04/22/2007 11:59 EDT Hospital Encounter [facility] [address] [place] [address] Gianluca Elmore MD [address] [place] [address] [address] [place] [address] Discharge Disposition: Auto Discharge Social History Tobacco [...]
--- OUTSIDE RECORDS SUMMARY | 2024-09-13 13:31 | XMS_ITS | Encounter Summary ---
Author Organization [facility] Address [address] [place] [address] Care Team Providers Care Senior Project Controls Specialist Name Role Phone Rosa M Jackman NP Primary Care Provider [phone] Unknown, Provider Primary Care Provider Alfredo Ramos DO Primary Care Provider [phone] Reason for Visit * Reason Onset Date Comments Appointment Related 06/12/2013 vas Encounter Details Date Type Department Care Team (Late st Contact Info) Description 06/12/2013 Telephone [facility] Urology - [address] [phone] Fernando Khan MD [address] [place] [address], [address] [place] [address] Appointment Related (vas ) Social History Tobacco Use Types Packs/Day Years [...] * Telephone Encounter - Grace Lakhani - 06/12/2013 1259 EST SCHEDULED AND CALLED THE PATIENT * Telephone Encounter - Esme Vital - 06/12/2013 0942 EST Pt states he would like to schedule vasectomy. Please call. documented in this encounter Plan of Treatment Not on file documented as of this encounter Visit Diagnoses Not on filedocumented in this encounter Care Teams Senior Project Controls Specialist Relationship Specialty Start Date End Date Rosa M Jackman NP [address] [place] [address],[address] [place] [phone] PCP - General 04/26/13 07/12/13 Unknown, Provider, PCP - General 07/13/13 07/13/13 Alfredo Emanuel DO PCP - General 07/14/13 documented as of this encounter
--- OUTSIDE RECORDS SUMMARY | 2024-09-13 13:31 | XMS_ITS | Encounter Summary ---
Author Organization [facility] Address [address] [place] [address] Care Team Providers Care Aged Or Disabled Carer Name Role Phone Unavailable Primary Care Provider Unavailabl e Encounter Details Date Type Department Care Team (Late st Contact Info) Description 04/22/2007 Before PRISM Converted Visit (Maple) [facility] - Maple conversion [address] [place] [address] Gianluca Elmore MD [address] [place] [address] WAY [facility] [address] [place] [address] Social History Tobacco Use Types Packs/Day Years Used Date Smoking Tobacco: Never Assessed Sex and Gender Information Value Date Recorded Sex Assigned at Not on file Legal Sex Male 17:32 EST Gender Identity Male 09/29/2021 10:12 EST Sexual Orientation Not on file documented as of this encounter Plan of Treatment Not on file documented as of this encounter Visit Diagnoses * Evaluation - Gianluca Elmore MD - 06/08/2009 0958 EST DIVISION OF UROLOGY NEW PATIENT EVALUATION - 04/22/2007 Rosa M Jackman NP [address], [address] [place] [address] Dear Rosa M: Carroll Davenport was seen in my office today for a prevasectomy visit. I did review the procedure, risks,and benefits with him, as well as the need for postvasectomy semen checks and I also had a discussion with him concerning the permanence of the procedure. The procedure has been scheduled for the near future and I did ask him to contact my office if he should have otherquestions or concerns. I will, of course, keep you informed of any followup. Sincerely, Signed by Gianluca Elmore MD 04/29/2007 14:46 Gianluca Elmore MD - Gianluca Elmore MD - [facility] Job ID: [id number] Doc ID: [id number] cc: Rosa M Jackman NP documented in this encounter
[2024-09-13 14:37] LABS: Calculated LDL 142 mg/dL (<100); Cholesterol 222 mg/dL (<200); HDL Cholesterol 67 mg/dL (40-60); Triglyceride 68 mg/dL (<150)
== END 2024-09-13 13:28 | disposition home or self-care (01) ==
LOC: NCHCN 13:27
PROVIDERS: PCP Neuromusculoskeletal Medicine & OMM; Visit Provider Internal Medicine
DX: Z13.220 Encounter for screening for lipoid disorders (principal)
CPT/HCPCS: 80061

== ENCOUNTER 2024-10-09 16:02 | Outpatient (REF) | payer BC, SELFPAY ==
[2024-10-09 21:29] LABS: Abs Immature Grans 0.02 10^3/uL (0.0-0.06); Absolute Basophil Count 0.04 10^3/uL (0.0-0.2); Absolute Eosinophil Count 0.09 10^3/uL (0.0-0.7); Basophils % 0.5 %; Eosinophils % 1.1 %; HCT 44.7 % (40.0-50.0); HGB 15.3 g/dL (13.5-17.5); Immature Grans % 0.2 %; MCH 29.8 pg (27.0-33.0); MCHC 34.2 % (32.0-36.0); MCV 87 fL (80-95); MPV 9.6 fL (8.0-11.0); Monocytes % 6.1 %; Neutrophils % 76.1 %; Platelet Count 216 10^3/uL (130-400); RBC 5.13 10^6/uL (4.36-5.78); RDW 12.6 % (11.8-14.1); RDW-SD 40.1 fL; WBC 8.15 10^3/uL (4.4-10.8)
[2024-10-09 21:39] LABS: ALT 35 U/L (16-63); AST 22 U/L (15-37); Albumin 3.6 g/dL (3.4-5.0); Alkaline Phosphatase 105 U/L (46-116); Anion Gap 6.4 mmol/L (3-11); BUN 27 mg/dL (7-18); Bilirubin, Total 0.4 mg/dL (0.2-1.0); CO2 30.6 mmol/L (21.0-32.0); CREATININE 1.2 mg/dL (0.70-1.30); Calcium 8.9 mg/dL (8.5-10.1); Chloride 107 mmol/L (98-107); Estimated GFR 75.53 (mL/min/1.73m2); Glucose 89 mg/dL (74-106); Potassium 4.3 mmol/L (3.5-5.1); Sodium 144 mmol/L (136-145); Total Protein 6.9 g/dL (6.4-8.2)
== END 2024-10-09 16:03 | disposition home or self-care (01) ==
LOC: NCHCN 16:02
PROVIDERS: PCP Neuromusculoskeletal Medicine & OMM; Visit Provider Internal Medicine
DX: R61 Generalized hyperhidrosis (principal)
CPT/HCPCS: 80053; 85025

== ENCOUNTER 2025-01-23 10:22 | Outpatient (CLI) | payer BC, SELFPAY ==
[2025-01-23 19:07] LABS: PSA, Screening 0.6 ng/mL (<=2.5)
[2025-01-28 14:48] LABS: Testosterone, Total 475 ng/dL (240-950)
== END 2025-01-23 10:23 | disposition home or self-care (01) ==
LOC: LBO 10:22
PROVIDERS: PCP Internal Medicine; Visit Provider Nurse Practitioner Gerontology
DX: R39.9 Unspecified symptoms and signs involving the genitourinary system (principal); N52.9 Male erectile dysfunction, unspecified; N40.1 Benign prostatic hyperplasia with lower urinary tract symptoms
CPT/HCPCS: 36415; 84153; 84403